=== PATIENT | female | born 1985 | race Caucasian/White ===

== ENCOUNTER 2021-08-31 11:43 | Outpatient (RCR) | payer BC, SELFPAY ==
--- OUTSIDE RECORDS SUMMARY | 2021-08-26 09:09 | XMS_ITS | Continuity of Care Document ---
:1985 Author Care Team Providers Name Role Phone MD Sara Vega Primary Care Physician MD Raphael Attending Physician Unavailable Allergies, Adverse Reactions, Alerts Allergen Type Severity Reaction Last Updated Verified Status Adhesive Allergy Unknown June 01, Yes Active 2021 Nickel Allergy Unknown redness May 31, Yes Active 2021 Latex Allergy Unknown rash, redness May 31, Yes Acti ve 2021 Social History Smoking Status Status Start Date End Date Date of Observat ion Ex-smoker (finding) January 9:51am Additional Data Assigned Sex Female Problems Active Problems Medical Problem Onset Date Status Diabetes mellitus screening July 11, 2013 Active Section Active Screening Active Breast cancer 2021 Active Medications Medication Status Dose Units Route Directions Qty Days Start End Ins tructions Date Date Acetaminophen Active 500-1 MG PO Every 6 100 NO MORE THAN (Tylenol 000 Hours as 4000 MG/ DAY Extra needed Strength) 500 Mg TAB Albuterol Active 2 PUFF INH Every 4 1 (Ventolin Hours as Hfa) 90 Mcg needed DOSE Chlorpheniram Active 1 TAB OR Every 6-8 ine-Phenyleph Hours rine (Coricidin D Cold/Flu/Sinu ) TAB Hyoscyamine Active 0.125 MG OR As Needed Sulfate (Hyoscyamine Sulfate Odt) 0.125 Mg TAB Ibuprofen Active 600 MG PO Every 6 30 Hours as needed Lorazepam Active 0.5 MG PO Twice A Day June 15, 2021 9:34am Melatonin Active 3 MG PO Bedtime as 100 needed Montelukast Active 10 MG PO Bedtime 30 Sodium (Singulair) 10 Mg TAB Naproxen Active 500 MG PO Twice A Day 20 Omeprazole Active 40 MG PO Daily June 08, 2021 11:57am Ondansetron Active 4 MG PO Every 4-6 01 August For uncontrolled chemo related nausea if prochlorperazine Hcl Hours as , (compazine) ineffective. Do not take within 36 hours of needed 2021 chemo. Cautio n for constipation. 3:57pm Prochlorperaz Active 10 MG PO Every 8-12 01 June PRN ine Maleate Hours as , Nause a/vomitin needed for 2021 g Nausea/Vomi 12:35pm ting Acetaminophen Disconti 1-2 TAB PO Every 6 May /Hydrocodone nued Hours as , , Bitart needed 2021 2021 (Hydrocodone- 11:36am 8:46am Acetaminophen ) 5 Mg/325 Mg TAB Albuterol Disconti 2 PUFF INH Q4-6H Prn 03 May (Proventil nued , Hfa) 90 Mcg 2021 INH 10:22a m Clomiphene Disconti 150 MG PO Daily Days July Citrate nued 3-7 r , 2015 2:05pm 9:31am Clomiphene Disconti 50 MG PO Daily Days December Citrate nued 3-7 , 2015 11:16am 10:22a m Clomiphene Disconti 100 MG PO Daily December take during cycle days 3-7 and return to clinic on day 21 Citrate nued , , for progeste tracie level check 2015 2021 11:40am 10:22a m Clomiphene Disconti 150 MG PO Daily Days March Citrate nued 3-7 , 2016 11:17am 10:22a m Clomiphene Disconti 150 MG PO Daily Days 15 Janua r Citrate nued 3-7 r 2015, 2:52pm 2016 11:17a m Clomiphene Disconti 50 MG PO Daily Days m Take on cycle Citrate nued 3-7 er , thong days 3-7 2015, 9:12am 2016 1:59pm Clomiphene Disconti 50 MG PO Daily Days Octoberem Take on cycle Citrate nued 3-7 , thong days 3-7 2015 03, 3:58pm 2016 9:12am Clomiphene Disconti 50 MG PO Daily Days August Take on cycle Citrate nued 3-7 , , days 3-7 2015 2015 3:06pm 3:58pm Clomiphene Disconti 50 MG PO Daily Dece Anand e one pill daily on days Citrate nued r , er 3-7 of cyc le. (Clomid) 50 2012, Mg TAB 2:15pm 2012 3:52pm Clomiphene Disconti 50 MG PO Daily December Anand e one pill daily on days Citrate nued , er 3-7 of cycle . (Clomid) 50 2012, Mg TAB 2:39pm 2012 2:15pm Clomiphene Disconti 50 MG PO Daily Anand e one pill daily on days Citrate nued er r 3-7 of cycle . (Clomid) 50 , , Mg TAB 2012 2012 3:51pm 2:39pm Dalera Disconti Twice A Day b Inhaler nued er 2017 1:48pm Diphtheria/Te Disconti 0.5 ML IM Once August tanus/Acell nued , , Pertussis 2013 2013 (Adacel) 0.5 4:24pm 4:27pm Ml INJ Docosahexaeno Disconti 200 MG PO Daily August ic Acid nued , , ( 2015 2021 Dha) 200 Mg 3:06pm 10:22a CAP m Docosahexaeno Disconti 200 MG OR Daily August ic Acid nued , , ( 2015 2021 Dha) 200 Mg 8:14am 10:22a CAP m Docusate Disconti 100 MG PO Bedtime September Sodium nued , , (Colace) 100 2013 2015 Mg CAP 8:25am 2:48pm Doxycycline Disconti 100 MG PO Twice A Day August (Monohydrate) nued , (Doxycycline) 2021 2021 100 Mg TAB 11:08am 8:18am Doxycycline Disconti 100 MG PO Twice A Day August (Monohydrate) nued , (Doxycycline) 2021 100 Mg TAB 11:08a m Doxycycline Disconti 100 MG PO Twice A Day June m start Hyclate nued , thong medication t he 2012, day prior to 3:53pm 2012 your procedur e 3:22pm Fluoxetine Disconti 40 MG PO Daily 30 Decemb Hcl nued er 2012 3:52pm Ibuprofen Disconti 600 MG PO Every 6 September nued Hours as , , needed for 2013 2015 Pain 8:25am 2:48pm Magic Disconti 5 ML PO Four Times June SWISH AND SPIT Mouthwash nued Daily as , JULY COM POUND IF FIRST PRODUCT NOT COVERED (Lidocaine/Be needed 2021 2021 nadryl/Maalox 12:20pm 8:18am ) (First-Mouthw yessi Blm) Blm SHERON Norethindrone Disconti 0.35 MG PO Daily October (Contraceptiv nued , , e) (Eladia) 2013 2015 0.35 Mg TAB 8:37am 2:48pm Olanzapine Disconti 5 MG PO Daily June Take 1 tab at bedtime, daily for 4 days of each chemo cycle nued , , starting eveni ng after chemotherapy. Do not take at the 2021 2021 same time as o ther sedating medications. 6:09pm 3:57pm Olanzapine Disconti 5 MG PO Daily June Take 1 tab at bedtime, daily for 4 days of each chemo cycle nued , , starting eveni ng after chemotherapy. Do not take at the 2021 2021 same time as o ther sedating medications. 4:19pm 6:09pm Olanzapine Disconti 5 MG PO Daily May Take 1 tab at bedtime, daily for 4 days starting evening nued , , after chemothe rapy. Do not take at the same time as other 2021 2021 sedating medic ations. 12:11pm 4:19pm Ondansetron Disconti 4 MG PO Every 4-6 June F or uncontrolled chemo related nausea if prochlorperazine Hcl nued Hours as , (compazine) ineffective. Do not take within 36 hours of needed 2021 2021 chemo. Cautio n for constipation. 12:20pm 3:57pm Ondansetron Disconti 4 MG PO Four Times 30 Decembe Doreen Hcl (Zofran) nued Daily as r , , 4 Mg TAB needed 2012 2013 11:15am 11:30a m Oxycodone Hcl Disconti 5-10 MG PO Every 4 September nued Hours as , , needed for 2013 2015 Pain 8:25am 2:48pm Phenylephrine Disconti 10 MG PO As Needed June Hcl (Oral) nued , (Sudafed Pe 2021 Congestion) 8:46am 10 Mg TAB Progesterone Disconti 100 MG VA Daily Januar (Vaginal) nued r , y (Endometrin) 2012, 100 Mg SUP 10:12am 2013 3:37pm Ranitidine Disconti 150 MG PO Twice A Day September Hcl (Zantac) nued , 150 Mg TAB 2014 8:25am Triamcinolone Disconti 1 TIA TOP Twice A Day July Acetonide nued , , (Triamcinolon 2013 2013 e Acetonide 8:29pm 8:25am (Cream)) 0.1 % CRE Immunizations Immunization Event Not Given Dose Oceanographer Physical Lot Number Vac cine Date Reason Number Informatio n Statement (VIS) Deta il Tdap August 03 SANOFI [id number] (adolescent/adul ) 2013 Medical Equipment Device Date Implanted Device Details PowerPort M.[employer].I. Implantable May 31, 2021 JAMARI: [id number] Port Issuing Agency: [id number] Device Id: [id number] Expiration Date: 05-08-29 Lot Number: [id number] Relevant Diagnostic Tests and/or Laboratory Data Laboratory Results Test Date/Time Result Interpretation Reference Result Comment Performing Range Site White Blood August 24, 4.49 5.00-10.00 [facility] Hospital Lab Count 2021 [facility] 7:55am [facility] [address] Red Blood Count August 24, 3.18 3.90-5.03 [facility] 2021 [facility] 7:55am [facility] [address] Hemoglobin August 24, 9.6 12.0-15.5 [facility] Lab 2021 [facility] 7:55am [facility] [address] Hematocrit August 24, 28.5 34.9-44.5 [facility] 2021 [address] [facility] 7:55am [place] [address] Mean August 24, 90 82-98 [facility] Corpuscular 2021 1999 [facility] Volume 7:55am [place] [address] Mean August 24, 30 27-34 [facility] Corpuscular 2021 [address] [facility] Hemoglobin 7:55am [facility] [place] [address] Mean August 24, 34 32-36 [facility] Corpuscular 2021 [address] [facility] Hemoglobin 7:55am [facility] [address] Concent Platelet Count August 24, 276 150-450 [facility] Lab 2021 [address] [facility] 7:55am [place] [address] RDW Coefficient August 24, 15.8 11.5-15.3 [facility] Lab of Variation 2021 1999 [facility] 7:55am [place] [address] Neutrophils (%) August 24, 72.0 50.0-70.0 [facility] Lab (Auto) 2021 [address] [facility] 7:55am [place] [address] Lymphocytes (%) August 24, 16.3 25.0-45.0 [facility] (Auto) 2021 [address] [facility] 7:55am [place] [address] Monocytes (%) August 24, 7.3 0.00-11.0 [facility] (Auto) 2021 [address] [facility] 7:55am [place] [address] Eosinophils (%) August 24, 4.0 0.0-7.0 [facility] (Auto) 2021 [address] [facility] 7:55am [place] [address] Basophils (%) August 24, 0.2 0.0-3.0 [facility] (Auto) 2021 [address] [facility] 7:55am [place] [address] Immature August 24, 0.2 [facility] Granulocyte % 2021 1999 [facility] (Auto) 7:55am [place] [address] Neutrophils # August 24, 3.23 1.70-7.00 [facility] (Auto) 2021 [address] [facility] 7:55am [place] [address] Lymphocytes # August 24, 0.73 0.90-2.90 [facility] (Auto) 2021 [address] [facility] 7:55am [facility] [address] Monocytes # August 24, 0.33 0.30-0.90 [facility] Lab (Auto) 2021 [address] [facility] 7:55am [facility] [address] Eosinophils # August 24, 0.18 0.00-0.50 [facility] (Auto) 2021 [address] [facility] 7:55am [facility] [address] Basophils # August 24, 0.01 0.00-0.20 [facility] (Auto) 2021 [address] [facility] 7:55am [facility] [address] Immature August 24, 0.01 [facility] Granulocyte # 2021 1999 [facility] (Auto) 7:55am [facility] [address] Random Glucose August 24, 106 60-115 [facility] 2021 [address] [facility] 7:55am [facility] [address] Blood Urea August 24, 16 5-24 [facility] Nitrogen 2021 [address] [facility] 7:55am [facility] [address] Creatinine August 24, 0.6 0.5-1.5 [facility] 2021 [address] [facility] 7:55am [facility] [address] Estimated August 24, 143.946 [facility] Creatinine 2021 65 1999 [facility] Clearance 7:55am [facility] [address] Sodium Level August 24, 138 135-149 [facility] Lab 2021 [address] [facility] 7:55am [facility] [address] Potassium Level August 24, 3.9 3.6-5.1 [facility] Lab 2021 [address] [facility] 7:55am [facility] [address] Chloride Level August 24, 104 96-114 [facility] Lab 2021 [address] [facility] 7:55am [facility] [address] Carbon Dioxide August 24, 25 20-32 [facility] Level 2021 [address] [facility] 7:55am [facility] [address] Uric Acid June 09, 4.2 2.2-8.4 [facility] 2021 [address] [facility] 10:00am [facility] [address] Calcium Level August 24, 8.7 8.4-10.6 [facility] 2021 [address] [facility] 7:55am [facility] [address] Total Protein August 24, 6.0 6.0-8.[address] [facility] Lab 2021 Eltrombopag, a [address] [facility] 7:55am bone marrow [place] [address] stimulant used to treat thrombocytopenia and aplastic anemia, interferes with this measurement of total protein. A 5% bias has been observed. Albumin August 24, 3.7 3.3-5.0 [facility] 2021 [address] [facility] 7:55am [place] [address] Total Bilirubin August 24, 0.3 0.1-1.5 [facility] 2021 [address] [facility] 7:55am [place] [address] Aspartate Amino August 24, 36 12-35 [facility] Transf 2021 [facility] (AST/SGOT) 7:55am [facility] [address] Alanine August 24, 36 4-35 [facility] Aminotransferas 2021 [facility] e (ALT/SGPT) 7:55am [place] [address] Alkaline August 24, 59 40-150 [facility] Phosphatase 2021 [address] [facility] 7:55am [place] [address] Advance Directives Advance Directive Response Recorded Date/Time Does Pt have Health Care No October 23, 14 7:56am Directive? Has patient completed a No January 15, 018 9:51am Health Care Directive? Insurance Providers Guarantor China Burgos Address [address] [place] [address] Contact Info. Home Phone: Payer Policy Id Coverage Id Subscriber's Subscriber Id Effective E xpiration Name Date Date [place] [id number] China Burgos [facility] [id number] Encounters Encounter Location(s) Arrival/Admit Date Discharge/Depart Date Provider(s) Registered [place] August 24, 2021 Raphael, [facility] 6:57am Plan of Treatment Future Tests Future scheduled test information is unavailable Pending Tests Pending diagnostic test information is unavailable Future Visits Future appointment information is unavailable Referrals to Other Providers Reason for Referral Start Provider Provider Contact Provider Address Referral Date Information Taylor Harrison Work Phone: [facility] [address] [facility] [address] Future Procedures Future procedure information is unavailable Future Medications Future medication information is unavailable Patient Instructions Fever in Adults (ED)
--- NOTE | 2021-08-29 16:27 | URNOTE ---
07/14/21 Note entered by Catina Bernal: Received request for prior auth for Paclitaxel ([id number]). Per Availity, prior auth is not required. Ref # [id number]
--- NOTE | 2021-08-29 16:28 | URNOTE ---
05/25/21 note entered by Shazia Soto: Request received from [facility] for prior authorization of Doxorubicin [id number], Cytoxan J9070, Emend J1453, Aloxi J2469 and Neulasta J2506. Patient carries [facility] [place] as primary insurance. Per BC/Availity no prior authorization is required for Doxorubicin, Cytoxan, Emend, Aloxi and Neulasta. Services are based on medical necessity. Authorization #[id number]
[2021-08-31 11:51] LABS: Slide Review Reflex No
[2021-08-31 12:00] VITALS: BP 132/83; PULSE 75; TEMP 36.4; O2SAT 96
[2021-08-31 12:35] LABS: Basophils Percent Auto 0.2 % (0.0-3.0); Eosinophils Percent Auto 1.6 % (0.0-7.0); Hematocrit 29.4 % (33.0-51.0); Hemoglobin* 9.8 gm/dL (12.0-16.0); Immature Granulocytes Abs Auto 0.02 K/uL (0.00-0.30); Lymphocytes Percent Auto 16.4 % (20-44); Mean Corpuscular HGB Conc 33 gm/dL (32-36); Mean Corpuscular Hemoglobin 30 pg (26-34); Mean Corpuscular Volume 91 fL (80-100); Monocytes Percent Auto 6.5 % (0.0-11.0); Neutrophils Percent Auto 74.8 % (42.0-72.0); Platelet Count* 320 K/uL (140-440); RDW Coefficient of Variation % 15.1 % (11.5-15.5); Red Blood Count 3.25 m/uL (4.00-5.20); White Blood Count* 4.32 K/uL (4.50-11.00)
[2021-08-31] MEDS: PALONOSETRON 0.25 MG/5 ML inj IVP (13:13)
[2021-08-31] MEDS: dexAMETHasone 20 MG in 0.9 % SODIUM CHLORIDE 100 ml 100 ML 408 MG IVPB (13:14)
[2021-08-31] MEDS: FAMOTIDINE 20 MG, diphenhydrAMINE 25 MG in 0.9 % SODIUM CHLORIDE 100 ml 100 ML 309 MG IVPB (13:39)
== END 2021-09-01 23:59 | disposition home or self-care (01) ==
LOC: CCIC 11:43
PROVIDERS: Clinical Nurse Specialist; PCP Family Medicine; Visit Provider Internal Medicine Hematology & Oncology
DX: C50.912 Malignant neoplasm of unspecified site of left female breast (principal); Z51.11 Encounter for antineoplastic chemotherapy; Z17.0 Estrogen receptor positive status [ER+]
CPT/HCPCS: 36415; 36591; 85025; 96376; 96413; J1100; J1200; J2469; J9267; S0028

== ENCOUNTER 2021-09-28 09:30 | Outpatient (RCR) | payer BC, SELFPAY ==
[2021-09-07 09:36] LABS: Basophils Percent Auto 0.5 % (0.0-3.0); Eosinophils Percent Auto 0.8 % (0.0-7.0); Hematocrit 29.2 % (33.0-51.0); Hemoglobin* 9.8 gm/dL (12.0-16.0); Immature Granulocytes Abs Auto 0.03 K/uL (0.00-0.30); Lymphocytes Percent Auto 4.3 % (20-44); Mean Corpuscular HGB Conc 34 gm/dL (32-36); Mean Corpuscular Hemoglobin 30 pg (26-34); Mean Corpuscular Volume 90 fL (80-100); Monocytes Percent Auto 6.5 % (0.0-11.0); Neutrophils Percent Auto 87.1 % (42.0-72.0); Platelet Count* 251 K/uL (140-440); Red Blood Count 3.24 m/uL (4.00-5.20); White Blood Count* 3.98 K/uL (4.50-11.00)
[2021-09-07 09:45] LABS: Slide Review Reflex No
[2021-09-07 09:50] VITALS: BP 134/86; PULSE 88; RESP 16; TEMP 36.2; O2SAT 97
[2021-09-07] MEDS: PALONOSETRON 0.25 MG/5 ML inj IVP (10:06)
[2021-09-07] MEDS: dexAMETHasone 20 MG in 0.9 % SODIUM CHLORIDE 100 ml 100 ML 408 MG IVPB (10:16)
[2021-09-07] MEDS: 0.9 % SODIUM CHLORIDE 250 ml IV (10:20)
[2021-09-07] MEDS: FAMOTIDINE 20 MG, diphenhydrAMINE 25 MG in 0.9 % SODIUM CHLORIDE 100 ml 100 ML 309 MG IVPB (10:41)
[2021-09-07] MEDS: HEPARIN 500 UNIT/5 ML SYRINGE IVF (12:43)
[2021-09-07] MEDS: SODIUM CHLORIDE 0.9 % (FLUSH) 10 ML SYRINGE IVF (12:43)
--- NOTE | 2021-09-07 16:27 | ONC.NURNOTE ---
Pt treated with Taxol today. Pt called this afternoon to inform [facility] staff that she found out she was exposed to COVID on September 04. Pt took an at home covid test and the result was positive. Pt states the only symptom she has is a little congestion this am which she thought was allergies. Director Product Development discussed with Ly Pisano APRN and recommendations given to pt to contact her primary care provider to get a PCR covid test so that it can be determine if she is a candidate for any treatment for COVID. Pt instructed she can return to [facility] for treatment 10 days after her positive test. Pt scheduled for her next chemo on 09/19/21 for labs and appt with Ly Pisano APRN to determine safe to proceed with Taxol. Pt will keep [facility] staff updated. Appt with Raphael cancelled for next week. Pt verbalized understanding of plan of care.
--- NOTE | 2021-09-08 14:33 | ONC.NURNOTE ---
Patient called office stating that with her positive COVID result, she was prescribed Paxlovid by primary but they wanted this okayed by oncologist in regards to chemotherapy. Specialty Sales Representative looked at clinical pharmacology and found that that potential to increase concentration of dexamethasone and taxol. Contacted Dr. Lim and she notes: That's a good thought. I have not done this drug before. So I have zero recommendations. But I don't see any reason why we can't try it. Patient notified of this by breast health care liaison.
--- NOTE | 2021-09-16 17:35 | ONC.NURNOTE ---
Authorization: User: Catina Bernal Date: 07/14/21 11:26 Type: Eligibility Determination Note... Received request for prior auth for Paclitaxel ([id number]). [facility]. Ref # [id number] User: Shazia L Charles Date: 05/25/21 13:30 Type: Eligibility Determination Note... Request received from [facility] for prior authorization of Doxorubicin J9000, Cytoxan J9070, Emend J1453, Aloxi J2469 and Neulasta J2506. Patient carries [facility] as primary insurance. Per /Availity no prior authorization is required for Doxorubicin, Cytoxan, Emend, Aloxi and Neulasta. Services are based on medical necessity. Authorization #[id number]
[2021-09-19 08:28] VITALS: BP 164/100; PULSE 81; RESP 16; TEMP 36.6; O2SAT 97
[2021-09-19 08:45] LABS: Basophils Percent Auto 0.3 % (0.0-3.0); Eosinophils Percent Auto 1.1 % (0.0-7.0); Hematocrit 31.3 % (33.0-51.0); Hemoglobin* 10.5 gm/dL (12.0-16.0); Immature Granulocytes Abs Auto 0.01 K/uL (0.00-0.30); Lymphocytes Percent Auto 17.2 % (20-44); Mean Corpuscular HGB Conc 34 gm/dL (32-36); Mean Corpuscular Hemoglobin 30 pg (26-34); Mean Corpuscular Volume 88 fL (80-100); Monocytes Percent Auto 10.5 % (0.0-11.0); Neutrophils Percent Auto 70.6 % (42.0-72.0); Platelet Count* 270 K/uL (140-440); RDW Coefficient of Variation % 12.8 % (11.5-15.5); Red Blood Count 3.54 m/uL (4.00-5.20); White Blood Count* 3.73 K/uL (4.50-11.00)
[2021-09-19 08:50] LABS: Slide Review Reflex No
[2021-09-19 08:51] VITALS: BP 137/80
[2021-09-19 08:53] LABS: Albumin* 3.7 g/dL (3.3-5.0)
[2021-09-19 08:54] LABS: Chloride* 108 mmol/L (96-114); Sodium* 138 mmol/L (135-149)
[2021-09-19 08:56] LABS: Aspartate Amino Transferase* 23 U/L (12-35); Bilirubin Total* 0.4 mg/dL (0.1-1.5); Carbon Dioxide* 26 mmol/L (20-32); Creatinine* 0.5 mg/dL (0.5-1.5); Est. Creatinine Clearance* 169.82; Estimated Glomerular Filt Rate 125 ml/min
[2021-09-19 08:57] LABS: Alanine Aminotransferase* 21 U/L (4-35); Alkaline Phosphatase* 67 U/L (40-150); Blood Urea Nitrogen* 16 mg/dL (5-24); Calcium* 8.4 mg/dL (8.4-10.6); Glucose* 113 mg/dL (60-115); Total Protein* 5.9 g/dL (6.0-8.3)
[2021-09-19] MEDS: SODIUM CHLORIDE 0.9 % (FLUSH) 10 ML SYRINGE IVF ×2 (10:19→14:07)
[2021-09-19] MEDS: 0.9 % SODIUM CHLORIDE 250 ml IV (10:19)
[2021-09-19] MEDS: PALONOSETRON 0.25 MG/5 ML inj IVP (10:20)
[2021-09-19] MEDS: dexAMETHasone 20 MG in 0.9 % SODIUM CHLORIDE 100 ml 100 ML 408 MG IVPB (10:20)
[2021-09-19] MEDS: FAMOTIDINE 20 MG, diphenhydrAMINE 25 MG in 0.9 % SODIUM CHLORIDE 100 ml 100 ML 307.5 MG IVPB (10:45)
[2021-09-19] MEDS: HEPARIN 500 UNIT/5 ML SYRINGE IVF (14:07)
[2021-09-28 09:50] VITALS: BP 130/90; PULSE 73; RESP 16; TEMP 36.4; O2SAT 97
[2021-09-28 09:51] LABS: Basophils Absolute Auto 0.02 K/uL (0.00-0.30); Basophils Percent Auto 0.4 % (0.0-3.0); Eosinophils Absolute Auto 0.08 K/uL (0.00-0.50); Eosinophils Percent Auto 1.5 % (0.0-7.0); Hematocrit 31.4 % (33.0-51.0); Hemoglobin* 10.6 gm/dL (12.0-16.0); Immature Granulocytes Abs Auto 0.02 K/uL (0.00-0.30); Mean Corpuscular HGB Conc 34 gm/dL (32-36); Mean Corpuscular Hemoglobin 30 pg (26-34); Mean Corpuscular Volume 88 fL (80-100); Monocytes Percent Auto 8.3 % (0.0-11.0); Neutrophils Percent Auto 73.4 % (42.0-72.0); Platelet Count* 300 K/uL (140-440); RDW Coefficient of Variation % 12.3 % (11.5-15.5); Red Blood Count 3.59 m/uL (4.00-5.20)
[2021-09-28 09:54] LABS: Slide Review Reflex No
[2021-09-28] MEDS: dexAMETHasone 20 MG in 0.9 % SODIUM CHLORIDE 100 ml 100 ML 408 MG IVPB (10:30)
[2021-09-28] MEDS: PALONOSETRON 0.25 MG/5 ML inj IVP (10:30)
[2021-09-28] MEDS: FAMOTIDINE 20 MG, diphenhydrAMINE 25 MG in 0.9 % SODIUM CHLORIDE 100 ml 100 ML 309 MG IVPB (10:56)
== END 2021-10-02 23:59 | disposition home or self-care (01) ==
LOC: CCIC 09:30
PROVIDERS: Clinical Nurse Specialist; PCP Family Medicine; Visit Provider Internal Medicine Hematology & Oncology
DX: C50.912 Malignant neoplasm of unspecified site of left female breast (principal)
CPT/HCPCS: 36415; 36591; 80053; 85025; 96376; 96413; 99212; 99214; J1100; J1200; J1642; J2469; J7050; J9267; S0028

== ENCOUNTER 2021-11-09 09:09 | Outpatient (CLI) | payer BC, SELFPAY ==
--- NOTE | 2021-11-09 09:15 | CRLHL7_ITS ---
For Patients: As a result of the 21st Century Cures Act, medical imaging exams and procedure reports are released immediately into your electronic medical record. You may view this report before your referring provider. If you have questions, please contact your health care provider. BILATERAL BREAST MRI WITHOUT AND WITH GADOLINIUM, 11/09/2021 CLINICAL HISTORY: 35-year-old with LEFT breast cancer, biopsy-proven christine metastasis, currently undergoing neoadjuvant therapy. INDICATION FOR BREAST MRI: Evaluate response to neoadjuvant therapy. COMPARISON STUDIES: MRI 05/08/2021 and 07/20/2021, mammogram and ultrasound 05/03/2021. CONTRAST: 15 cc of Gadavist. TECHNIQUE: The patient was positioned prone using a breast coil. Multiple imaging sequences were obtained using 1-1.5 mm thick slices with no gap. The image sequences include T2-weighted STIR in the axial plane, T1-weighted nonfat-saturated gradient echo in the axial plane, pre- and post-contrast T1-weighted FLASH 3D with fat suppression in the axial plane, and T1-weighted FLASH high resolution 3D with fat suppression in the sagittal plane. Image post-processing was performed on a KeyMe workstation. Complex 3D rendering including maximum intensity projections (MIPS) and volumetric renderings were obtained to optimize visualization of the extent of pathology and relationship to the nipple, skin, and chest wall. This aids in determining feasibility of breast conservation surgery. Subtraction, multiplanar reconstruction, mean curve determination, and angiogenesis mapping were also performed. The study was technically adequate. FINDINGS: Amount of Fibroglandular Tissue: Scattered fibroglandular tissue. Breast Background Enhancement: Mild. RIGHT Breast: No suspicious areas of enhancement. LEFT Breast: No suspicious areas of enhancement. Resolution of the previously-seen mass. No residual enhancement. The biopsy marker clip is seen at the site of biopsy-proven malignancy at 3 o`clock, middle depth. Persistent mild skin thickening with edema. No enhancement within the skin. Lymph Nodes: The lymph nodes appear morphologically normal. IMPRESSIONS AND RECOMMENDATIONS: LEFT breast: 1. Biopsy marker clip at the site of biopsy-proven malignancy in the LEFT breast with resolution of the mass, consistent with treatment response. Surgical/oncologic follow-up for continued management. 2. Lymph nodes appear morphologically normal, consistent with treatment response. RIGHT breast: Negative, there is no MRI evidence of contralateral malignancy. BI-RADS Category 6: Known Biopsy-Proven Malignancy Dictated by Rosa Leavitt MD @ 11/10/2021 9:01:46 AM JR/Dictated by: Rosa Leavitt MD @ 11/10/2021 9:03:00 AM (Electronically Signed)
== END 2021-11-09 09:10 | disposition home or self-care (01) ==
PROVIDERS: PCP Family Medicine; Visit Provider Internal Medicine Hematology & Oncology
DX: C50.912 Malignant neoplasm of unspecified site of left female breast (principal); C77.9 Secondary and unspecified malignant neoplasm of lymph node, unspecified
CPT/HCPCS: 77049; A9575

== ENCOUNTER 2022-03-02 13:27 | Outpatient (CLI) | payer BC, SELFPAY ==
--- NOTE | 2022-03-02 13:30 | CRLHL7_ITS ---
For Patients: As a result of the Century Cures Act, medical imaging exams and procedure reports are released immediately into your electronic medical record. You may view this report before your referring provider. If you have questions, please contact your health care provider. DXA BONE MINERAL DENSITY STUDY Current height (in): 70.0. Weight (lb): 336.0. Menopause age: 35. Ethnicity: White. 1. Have you had a previous hip or vertebral fracture? No. 2. Have you had any fractures during your adult life which did not result from significant trauma (e.g., auto accident)? No. 3. Did either of your parents have a hip fracture? No. 4. Do you smoke? No. 5. Have you ever taken Glucocorticoids? No. 6. Do you have rheumatoid arthritis? No. 7. Do you have secondary osteoporosis? No. 8. Do you drink 3 or more alcoholic drinks per day? No. 9. Are you being treated for osteoporosis? No. 10. Have you ever taken any of the following medications: Actonel, Evista, Fosamax, Miacalcin, Reclast, Boniva, Forteo, HRT (i.e. estrogen/hormone therapy), Protelos, Prolia, Vitamin D, Calcium, other ??? please specify. ANSWER: No. 11. Do you have any of the following medical conditions: Anorexia or bulimia, asthma or emphysema, end stage renal disease, hyperparathyroidism, any seizure disorders, cancer, inflammatory bowel diseases, hysterectomy, other ??? please specify. ANSWER: Yes, asthma or emphysema, cancer. 12. What was your maximum height (inches)? 70. 13. Do you perform weight bearing exercise regularly? Yes. 14. Do you regularly consume dairy products? Yes. 15. Do you drink caffeinated beverages? Yes. 16. At what age did your period start? 13. 17. Are you premenopausal? Yes. 18. How many full term pregnancies have you had? . 19. Have you ever missed your period for more than 6 months in a row (not including or menopause)? No. TECHNIQUE: Bone mineral density study was performed using the [employer]. FINDINGS: The results of the study expressed as bone mineral density (BMD) are as follows: Lumbar spine L1 to L4: BMD: 0.970 g/cm2. T-score: -0.7. Z-score: -0.6. Neck Left: BMD: 0.795 g/cm2. T-score: -0.5. Z-score: -0.3. Right: BMD: 0.881 g/cm2. T-score: 0.3. Z-score: 0.5. Total Left: BMD: 1.063 g/cm2. T-score: 1.0. Z-score: 1.1. Right: BMD: 1.065 g/cm2. T-score: 1.0. Z-score: 1.1. IMPRESSION: Normal bone density. Tyler Mendez M.D. Diagnostic Radiologist [email or web address] ANGELICA/bean / be/Dictated by: Tyler Mendez MD @ 03/02/2022 2:18:00 PM (Electronically Signed)
== END 2022-03-02 13:28 | disposition home or self-care (01) ==
PROVIDERS: PCP Family Medicine; Visit Provider Internal Medicine Hematology & Oncology
DX: N95.9 Unspecified menopausal and perimenopausal disorder (principal)
CPT/HCPCS: 77080

== ENCOUNTER 2022-03-23 10:00 | Outpatient (RCR) | payer BC, SELFPAY ==
[2021-10-05 08:15] VITALS: BP 150/90; PULSE 78; RESP 14; TEMP 36.1; O2SAT 97
[2021-10-05 08:37] LABS: Basophils Absolute Auto 0.02 K/uL (0.00-0.30); Basophils Percent Auto 0.4 % (0.0-3.0); Eosinophils Absolute Auto 0.12 K/uL (0.00-0.50); Eosinophils Percent Auto 2.6 % (0.0-7.0); Hematocrit 31.7 % (33.0-51.0); Hemoglobin* 10.6 gm/dL (12.0-16.0); Immature Granulocytes Abs Auto 0.02 K/uL (0.00-0.30); Lymphocytes Percent Auto 19.9 % (20-44); Mean Corpuscular HGB Conc 33 gm/dL (32-36); Mean Corpuscular Hemoglobin 29 pg (26-34); Mean Corpuscular Volume 87 fL (80-100); Monocytes Percent Auto 8.1 % (0.0-11.0); Neutrophils Absolute Auto 3.14 K/uL (1.7-7.0); Neutrophils Percent Auto 68.6 % (42.0-72.0); Platelet Count* 273 K/uL (140-440); Red Blood Count 3.65 m/uL (4.00-5.20); White Blood Count* 4.58 K/uL (4.50-11.00)
[2021-10-05 08:40] LABS: Slide Review Reflex No
[2021-10-05] MEDS: dexAMETHasone 20 MG in 0.9 % SODIUM CHLORIDE 100 ml 100 ML 408 MG IVPB (09:18)
[2021-10-05] MEDS: PALONOSETRON 0.25 MG/5 ML inj IVP (09:19)
[2021-10-05] MEDS: 0.9 % SODIUM CHLORIDE 250 ml IV (09:29)
[2021-10-05] MEDS: HEPARIN 500 UNIT/5 ML SYRINGE IVF (09:29)
[2021-10-05] MEDS: SODIUM CHLORIDE 0.9 % (FLUSH) 10 ML SYRINGE IVF (09:29)
[2021-10-05] MEDS: FAMOTIDINE 20 MG, diphenhydrAMINE 25 MG in 0.9 % SODIUM CHLORIDE 100 ml 100 ML 309 MG IVPB (09:46)
[2021-10-12 08:08] LABS: Basophils Percent Auto 0.7 % (0.0-3.0); Eosinophils Percent Auto 2.9 % (0.0-7.0); Hematocrit 32.1 % (33.0-51.0); Hemoglobin* 10.7 gm/dL (12.0-16.0); Immature Granulocytes Abs Auto 0.02 K/uL (0.00-0.30); Lymphocytes Percent Auto 20.5 % (20-44); Mean Corpuscular HGB Conc 33 gm/dL (32-36); Mean Corpuscular Hemoglobin 29 pg (26-34); Mean Corpuscular Volume 87 fL (80-100); Monocytes Percent Auto 7.9 % (0.0-11.0); Neutrophils Percent Auto 67.5 % (42.0-72.0); Platelet Count* 288 K/uL (140-440); RDW Coefficient of Variation % 12.3 % (11.5-15.5); Red Blood Count 3.68 m/uL (4.00-5.20); White Blood Count* 4.44 K/uL (4.50-11.00)
[2021-10-12 08:10] LABS: Slide Review Reflex No
[2021-10-12 08:24] LABS: Albumin* 3.7 g/dL (3.3-5.0); Chloride* 106 mmol/L (96-114)
[2021-10-12 08:25] LABS: Potassium* 3.7 mmol/L (3.6-5.1); Sodium* 140 mmol/L (135-149)
[2021-10-12 08:27] LABS: Alanine Aminotransferase* 28 U/L (4-35); Alkaline Phosphatase* 70 U/L (40-150); Aspartate Amino Transferase* 25 U/L (12-35); Bilirubin Total* 0.1 mg/dL (0.1-1.5); Blood Urea Nitrogen* 18 mg/dL (5-24); Carbon Dioxide* 26 mmol/L (20-32); Creatinine* 0.6 mg/dL (0.5-1.5); Estimated Glomerular Filt Rate 120 ml/min; Glucose* 103 mg/dL (60-115); Total Protein* 6.3 g/dL (6.0-8.3)
[2021-10-12 08:28] LABS: Calcium* 8.6 mg/dL (8.4-10.6)
[2021-10-12] MEDS: dexAMETHasone 20 MG in 0.9 % SODIUM CHLORIDE 100 ml 100 ML 408 MG IVPB (09:25)
[2021-10-12] MEDS: PALONOSETRON 0.25 MG/5 ML inj IVP (09:26)
[2021-10-12] MEDS: FAMOTIDINE 20 MG, diphenhydrAMINE 25 MG in 0.9 % SODIUM CHLORIDE 100 ml 100 ML 309 MG IVPB (09:47)
[2021-10-12] MEDS: SODIUM CHLORIDE 0.9 % (FLUSH) 10 ML SYRINGE IVF (11:37)
[2021-10-12] MEDS: HEPARIN 500 UNIT/5 ML SYRINGE IVF (11:37)
[2021-10-19 09:11] VITALS: BP 128/83; PULSE 89; RESP 16; TEMP 36.4; O2SAT 97
[2021-10-19 09:27] LABS: Basophils Absolute Auto 0.01 K/uL (0.00-0.30); Basophils Percent Auto 0.2 % (0.0-3.0); Eosinophils Percent Auto 2.2 % (0.0-7.0); Hematocrit 33.2 % (33.0-51.0); Hemoglobin* 11.2 gm/dL (12.0-16.0); Immature Granulocytes Abs Auto 0.03 K/uL (0.00-0.30); Lymphocytes Percent Auto 16.1 % (20-44); Mean Corpuscular HGB Conc 34 gm/dL (32-36); Mean Corpuscular Hemoglobin 29 pg (26-34); Mean Corpuscular Volume 86 fL (80-100); Monocytes Percent Auto 7.1 % (0.0-11.0); Neutrophils Percent Auto 73.8 % (42.0-72.0); Platelet Count* 305 K/uL (140-440); RDW Coefficient of Variation % 12.4 % (11.5-15.5); Red Blood Count 3.87 m/uL (4.00-5.20); White Blood Count* 4.65 K/uL (4.50-11.00)
[2021-10-19 09:29] LABS: Slide Review Reflex No
[2021-10-19 09:45] LABS: Chloride* 104 mmol/L (96-114)
[2021-10-19 09:46] LABS: Potassium* 4.1 mmol/L (3.6-5.1); Sodium* 137 mmol/L (135-149)
[2021-10-19 09:48] LABS: Bilirubin Total* 0.2 mg/dL (0.1-1.5); Carbon Dioxide* 27 mmol/L (20-32); Creatinine* 0.6 mg/dL (0.5-1.5); Estimated Glomerular Filt Rate 120 ml/min; Total Protein* 6.9 g/dL (6.0-8.3)
[2021-10-19 09:49] LABS: Alanine Aminotransferase* 54 U/L (4-35); Alkaline Phosphatase* 73 U/L (40-150); Aspartate Amino Transferase* 39 U/L (12-35); Blood Urea Nitrogen* 22 mg/dL (5-24); Calcium* 8.7 mg/dL (8.4-10.6); Glucose* 100 mg/dL (60-115)
[2021-10-19] MEDS: PALONOSETRON 0.25 MG/5 ML inj IVP (10:15)
[2021-10-19] MEDS: FAMOTIDINE 20 MG, diphenhydrAMINE 25 MG in 0.9 % SODIUM CHLORIDE 100 ml 100 ML 307.5 MG IVPB (10:15)
[2021-10-19] MEDS: SODIUM CHLORIDE 0.9 % (FLUSH) 10 ML SYRINGE IVF ×2 (10:15→12:18)
[2021-10-19] MEDS: 0.9 % SODIUM CHLORIDE 250 ml IV (10:15)
[2021-10-19] MEDS: dexAMETHasone 20 MG in 0.9 % SODIUM CHLORIDE 100 ml 100 ML 408 MG IVPB (10:38)
[2021-10-19] MEDS: HEPARIN 500 UNIT/5 ML SYRINGE IVF (12:18)
[2021-10-26 08:27] LABS: Basophils Absolute Auto 0.03 K/uL (0.00-0.30); Basophils Percent Auto 0.6 % (0.0-3.0); Eosinophils Absolute Auto 0.07 K/uL (0.00-0.50); Eosinophils Percent Auto 1.3 % (0.0-7.0); Hematocrit 33.2 % (33.0-51.0); Hemoglobin* 11.3 gm/dL (12.0-16.0); Immature Granulocytes Abs Auto 0.04 K/uL (0.00-0.30); Lymphocytes Percent Auto 16.9 % (20-44); Mean Corpuscular HGB Conc 34 gm/dL (32-36); Mean Corpuscular Hemoglobin 29 pg (26-34); Mean Corpuscular Volume 85 fL (80-100); Monocytes Percent Auto 9.2 % (0.0-11.0); Neutrophils Absolute Auto 3.72 K/uL (1.7-7.0); Neutrophils Percent Auto 71.2 % (42.0-72.0); Platelet Count* 304 K/uL (140-440); RDW Coefficient of Variation % 12.6 % (11.5-15.5); Red Blood Count 3.93 m/uL (4.00-5.20); White Blood Count* 5.22 K/uL (4.50-11.00)
[2021-10-26 08:31] LABS: Slide Review Reflex No
[2021-10-26 08:40] LABS: Albumin* 3.9 g/dL (3.3-5.0); Chloride* 101 mmol/L (96-114); Potassium* 3.9 mmol/L (3.6-5.1); Sodium* 137 mmol/L (135-149)
[2021-10-26 08:42] LABS: Creatinine* 0.6 mg/dL (0.5-1.5); Estimated Glomerular Filt Rate 120 ml/min
[2021-10-26 08:43] LABS: Alanine Aminotransferase* 34 U/L (4-35); Alkaline Phosphatase* 76 U/L (40-150); Aspartate Amino Transferase* 28 U/L (12-35); Bilirubin Total* 0.2 mg/dL (0.1-1.5); Blood Urea Nitrogen* 21 mg/dL (5-24); Carbon Dioxide* 29 mmol/L (20-32); Glucose* 110 mg/dL (60-115); Total Protein* 6.7 g/dL (6.0-8.3)
[2021-10-26] MEDS: 0.9 % SODIUM CHLORIDE 250 ml IV (09:16)
[2021-10-26] MEDS: PALONOSETRON 0.25 MG/5 ML inj IVP (09:16)
[2021-10-26] MEDS: SODIUM CHLORIDE 0.9 % (FLUSH) 10 ML SYRINGE IVF (09:16)
[2021-10-26] MEDS: dexAMETHasone 20 MG in 0.9 % SODIUM CHLORIDE 100 ml 100 ML 400 MG IVPB (09:20)
[2021-10-26] MEDS: FAMOTIDINE 20 MG, diphenhydrAMINE 25 MG in 0.9 % SODIUM CHLORIDE 100 ml 100 ML 309 MG IVPB (09:42)
--- NOTE | 2021-11-30 13:37 | ONC.NURNOTE ---
Pt's mother called stating pt is now recovering from a Bilateral mastectomy, ovarian tube removal, and port removal by Dr. Thibodeaux. Pt doing well.
--- NOTE | 2022-02-21 14:23 | ONC.NURNOTE ---
I met with China and her mom after her oncology visit. Discussed plan of care including starting Anastrozole/Lynparza around 03/11/22, obtaining dental clearance for Zometa infusion (form given to [place]) and obtaining a baseline DEXA scan. Informed China that the Lynparaza Rx will need to be filled at a specialty pharmacy. Rx faxed to [facility] and we will await co-pay information. Printed information given to China re: Anastrzole, Lynparza and Zometa. Follow up appointment made with Ashlee Estrella for 03/23 and patient informed we will need to get labs done every 2 weeks for the first few months of Lynparaza. Patient verbazlies understanding of plan.
--- NOTE | 2022-02-23 16:01 | ONC.NURNOTE ---
Received call from [facility] clarifying if ok to switch the strength of Lynparza from 3 (100 mg) to 2 (150 mg) tabs. Reviewed dosing of 300mg BID per Dr. Lmi's note; [facility] to dispense 150mg tabs #120 for 2 tabs BID.
--- NOTE | 2022-02-24 12:23 | ONC.NURNOTE ---
Spoke with [facility] specialty pharmacy, . They were able to get Lynparza approved for patient with a very minimal, possibly $0 co-pay. They will contact [place] next week to arrange shipment. China will call [facility] to let us know when the shipment arrives with plan to start the Anastrozole and Lynparza on March 13.
--- NOTE | 2022-03-10 11:56 | ONC.NURNOTE ---
Spoke with [facility] ([phone], option [phone]), pharmacists Amanda and Sarah throughout the week. Extensive discussion regarding NCCN guidelines, Cindi trial and pt's staging with Dr. Mcgovern, Ly Mccarty APRN and [facility], and considerations for Verzenio vs Olaparib, regarding Dr. Lim's recent visit note. [facility] comfortable to proceed with dispensing Olaparib; to be delivered 03/11 or 03/13 for start date of 03/13. Reviewed plan with pt to f/u with Ly Mccarty APRN 03/23 to review side effects/tolerance of Olaparib. Pt agreeable to this plan and will notify us if any concerns.
[2022-03-10 13:34] LABS: Basophils Absolute Auto 0.01 K/uL (0.00-0.30); Basophils Percent Auto 0.2 % (0.0-3.0); Hematocrit 38.7 % (33.0-51.0); Hemoglobin* 12.9 gm/dL (12.0-16.0); Lymphocytes Percent Auto 11.3 % (20-44); Mean Corpuscular HGB Conc 33 gm/dL (32-36); Mean Corpuscular Hemoglobin 27 pg (26-34); Mean Corpuscular Volume 81 fL (80-100); Monocytes Percent Auto 6.1 % (0.0-11.0); Neutrophils Percent Auto 78.4 % (42.0-72.0); Platelet Count* 283 K/uL (140-440); RDW Coefficient of Variation % 14.3 % (11.5-15.5); Red Blood Count 4.76 m/uL (4.00-5.20); White Blood Count* 5.05 K/uL (4.50-11.00)
[2022-03-10 13:36] LABS: Slide Review Reflex No
[2022-03-10 13:55] LABS: Albumin* 4.2 g/dL (3.3-5.0); Chloride* 106 mmol/L (96-114); Potassium* 3.5 mmol/L (3.6-5.1); Sodium* 140 mmol/L (135-149)
[2022-03-10 13:58] LABS: Alanine Aminotransferase* 24 U/L (4-35); Alkaline Phosphatase* 69 U/L (40-150); Aspartate Amino Transferase* 22 U/L (12-35); Bilirubin Total* 0.4 mg/dL (0.1-1.5); Blood Urea Nitrogen* 14 mg/dL (5-24); Calcium* 9.1 mg/dL (8.4-10.6); Carbon Dioxide* 27 mmol/L (20-32); Creatinine* 0.6 mg/dL (0.5-1.5); Estimated Glomerular Filt Rate 119 ml/min; Glucose* 163 mg/dL (60-115); Magnesium* 1.9 mg/dL (1.5-2.6); Total Protein* 6.6 g/dL (6.0-8.3)
--- NOTE | 2022-03-14 14:03 | ONC.NURNOTE ---
Confirmed with patient that she received her shipment of Lynparaza/olaparib. She started taking it yesterday 03/13, along with her Anastrozole. The only side effect she is reporting is mild nausea a few hours after taking the medication. I instructed her that if this continues, she could try taking an anti-nausea medication with olaparib to see if that helps. Patient encouraged to call with questions or concerns.
--- NOTE | 2022-03-20 16:08 | ONC.NURNOTE ---
Called pt to f/u 1st week of Olaparib/Lynparza and Anastrazole. She reports she is overall feeling well, however she has had some GI changes. She notes she is having frequent heartburn and would like to resume Omeprazole which she took during prior chemo. She also notes having episodes of dry heaving/gagging ~1x/day; she denies general nausea/queasiness but has sudden onset nausea. Denies emesis, saying the episodes pass quickly. She also reports fatigue, which she describes as general fatigue and is manageable at this time; she is taking a nap every few days. Reviewed with Ly Mccatry APRN; refills placed for Omeprazole and Ondansetron, which worked well during previous chemo.
[2022-03-23 10:22] VITALS: BP 130/73; PULSE 89; RESP 16; TEMP 36.6; O2SAT 98
[2022-03-23 10:40] LABS: Basophils Absolute Auto 0.02 K/uL (0.00-0.30); Basophils Percent Auto 0.3 % (0.0-3.0); Eosinophils Absolute Auto 0.29 K/uL (0.00-0.50); Eosinophils Percent Auto 5.1 % (0.0-7.0); Hematocrit 38.6 % (33.0-51.0); Hemoglobin* 12.8 gm/dL (12.0-16.0); Immature Granulocytes Abs Auto 0.01 K/uL (0.00-0.30); Immature Granulocytes Pct Auto 0.2 %; Lymphocytes Percent Auto 9.9 % (20-44); Mean Corpuscular HGB Conc 33 gm/dL (32-36); Mean Corpuscular Hemoglobin 27 pg (26-34); Mean Corpuscular Volume 82 fL (80-100); Monocytes Percent Auto 5.9 % (0.0-11.0); Neutrophils Percent Auto 78.6 % (42.0-72.0); Platelet Count* 295 K/uL (140-440); RDW Coefficient of Variation % 14.5 % (11.5-15.5); Red Blood Count 4.73 m/uL (4.00-5.20); White Blood Count* 5.74 K/uL (4.50-11.00)
[2022-03-23 10:52] LABS: Slide Review Reflex No
[2022-03-23 11:40] LABS: Albumin* 4.3 g/dL (3.3-5.0); Chloride* 105 mmol/L (96-114); Potassium* 3.9 mmol/L (3.6-5.1); Sodium* 140 mmol/L (135-149)
[2022-03-23 11:43] LABS: Alanine Aminotransferase* 22 U/L (4-35); Alkaline Phosphatase* 83 U/L (40-150); Aspartate Amino Transferase* 29 U/L (12-35); Bilirubin Total* 0.5 mg/dL (0.1-1.5); Blood Urea Nitrogen* 20 mg/dL (5-24); Carbon Dioxide* 28 mmol/L (20-32); Creatinine* 0.7 mg/dL (0.5-1.5); Estimated Glomerular Filt Rate 115 ml/min; Glucose* 102 mg/dL (60-115); Total Protein* 7.1 g/dL (6.0-8.3)
[2022-03-23 11:44] LABS: Calcium* 9.3 mg/dL (8.4-10.6)
--- NOTE | 2022-03-23 15:22 | ONC.NURNOTE ---
Pt here to see Ly Mccarty APRN for side effects f/u 10 days after beginning Lynparza and Anastrazole. Nausea and gagging reported earlier this week has resolved with resuming Omeprazole. Pt has been carrying Zofran with her but has not needed it; requested to switch to Compazine as she can only receive #9 pills/refill of Zofran at her pharmacy. Pt reports mild myalgias upon waking; asked to try Claritin daily which worked well for her Taxol-related myalgias. Per Ly, scripts sent for Compazine and Claritin. Reviewed [facility] with pt, which gives clearance and also recommends 3rd molar be removed. Pt confirmed with her dentist this is a wisdom tooth; it is causing pt no pain or other issue and she would like to keep it in as of now. Dental Clearance notes no signs or concern for infection for this tooth. Pt f/u with Ashlee Padron CNP 04/10 with labs; Ly Mccarty APRN to discuss how/when to proceed with bisphosphonate therapy with Ashlee.
== END 2022-04-03 23:59 | disposition home or self-care (01) ==
LOC: CCIC 10:00
PROVIDERS: Internal Medicine Hematology & Oncology; PCP Family Medicine; Referring Provider Family Medicine; Visit Provider Clinical Nurse Specialist
DX: C50.912 Malignant neoplasm of unspecified site of left female breast (principal); Z17.0 Estrogen receptor positive status [ER+]; M25.50 Pain in unspecified joint; T45.1X5A Adverse effect of antineoplastic and immunosuppressive drugs, initial encounter; R12 Heartburn; N95.9 Unspecified menopausal and perimenopausal disorder; G62.0 Drug-induced polyneuropathy
CPT/HCPCS: 36415; 36591; 80053; 83735; 85025; 96376; 96413; 99212; 99214; 99215; J1100; J1200; J1642; J2469; J7050; J9267; S0028

== ENCOUNTER 2022-05-24 15:09 | Outpatient (CLI) | payer BC, SELFPAY | END 2022-05-24 15:10 | disposition home or self-care (01) | LOC: NFLDREF 05-26 15:27 | PROVIDERS: PCP Family Medicine; Referring Provider Family Medicine; Visit Provider Internal Medicine Hematology & Oncology | DX: R79.89 Other specified abnormal findings of blood chemistry (principal) | CPT/HCPCS: 84439; 84481 ==

== ENCOUNTER 2022-09-14 14:30 | Outpatient (RCR) | payer BC, SELFPAY ==
[2022-04-10 09:27] LABS: Basophils Absolute Auto 0.02 K/uL (0.00-0.30); Basophils Percent Auto 0.3 % (0.0-3.0); Eosinophils Absolute Auto 0.26 K/uL (0.00-0.50); Eosinophils Percent Auto 4.1 % (0.0-7.0); Hemoglobin* 12.3 gm/dL (12.0-16.0); Immature Granulocytes Abs Auto 0.03 K/uL (0.00-0.30); Immature Granulocytes Pct Auto 0.5 %; Lymphocytes Percent Auto 9.7 % (20-44); Mean Corpuscular HGB Conc 33 gm/dL (32-36); Mean Corpuscular Hemoglobin 28 pg (26-34); Mean Corpuscular Volume 83 fL (80-100); Monocytes Percent Auto 6.8 % (0.0-11.0); Neutrophils Percent Auto 78.6 % (42.0-72.0); Platelet Count* 282 K/uL (140-440); RDW Coefficient of Variation % 15.8 % (11.5-15.5); Red Blood Count 4.44 m/uL (4.00-5.20)
[2022-04-10 09:30] LABS: Slide Review Reflex No
[2022-04-10 09:43] LABS: Chloride* 106 mmol/L (96-114); Sodium* 141 mmol/L (135-149)
[2022-04-10 09:46] LABS: Alanine Aminotransferase* 24 U/L (4-35); Alkaline Phosphatase* 69 U/L (40-150); Aspartate Amino Transferase* 23 U/L (12-35); Bilirubin Total* 0.4 mg/dL (0.1-1.5); Blood Urea Nitrogen* 17 mg/dL (5-24); Carbon Dioxide* 33 mmol/L (20-32); Creatinine* 0.7 mg/dL (0.5-1.5); Estimated Glomerular Filt Rate 115 ml/min; Total Protein* 6.9 g/dL (6.0-8.3)
[2022-04-10 09:47] LABS: Calcium* 9.1 mg/dL (8.4-10.6); Glucose* 86 mg/dL (60-115); Magnesium* 1.9 mg/dL (1.5-2.6)
--- NOTE | 2022-04-11 10:29 | URNOTE ---
Received request for prior authorization for [employer] [id number], Per [employer], prior authorization is not required. Ref #[id number]
[2022-04-19 09:32] VITALS: BP 130/93; PULSE 75; RESP 16; TEMP 36.1; O2SAT 98
[2022-04-19] MEDS: ZOLEDRONIC ACID 4 MG in 0.9 % SODIUM CHLORIDE 100 ml 100 ML 420 MG IVPB (10:14)
--- NOTE | 2022-04-21 16:07 | ONC.NURNOTE ---
Addendum entered by Narda Flores 04/25/22 13:24: Patient called to let us know that she went to Urgent Care as directed last Sunday. They did a CXR which was normal and labs. Her WBC was slightly low (4.1 and ANC 3.5). They did give her a prophylactic dose of Zpak which she has completed. She reports that she is almost fully recovered now but still feels like her head is fuzzy. I assured [place] that we would discuss this further with Dr. Lim at her follow up appointment. Original Note: Pt called today describing how she received her first dose of Zometa 04/19 and has been having side effects. The evening following the infusion she developed extensive body aches and a fever. She alternated Tylenol and Ibuprofen and had T max 101.7. She felt better in the morning but is now spiking a fever again, 100.7 currently. Reviewed that bone aches and low fever can be side effects of Zometa, but 101.7 is higher than expected, especially with anti-pyretics in use. When assessed, pt notes she had a cough the last few weeks, coughing up some mucus; Covid test negative at that time. Per significance of fever, recommended pt be seen by PCP or Urgent Care today to r/u other infectious/viral processes. Pt agreeable to this plan.
[2022-05-02 09:12] LABS: Basophils Absolute Auto 0.03 K/uL (0.00-0.30); Basophils Percent Auto 0.4 % (0.0-3.0); Eosinophils Percent Auto 2.8 % (0.0-7.0); Hematocrit 37.2 % (33.0-51.0); Hemoglobin* 12.4 gm/dL (12.0-16.0); Immature Granulocytes Abs Auto 0.01 K/uL (0.00-0.30); Immature Granulocytes Pct Auto 0.1 %; Lymphocytes Percent Auto 8.6 % (20-44); Mean Corpuscular HGB Conc 33 gm/dL (32-36); Mean Corpuscular Hemoglobin 28 pg (26-34); Mean Corpuscular Volume 85 fL (80-100); Monocytes Percent Auto 7.4 % (0.0-11.0); Neutrophils Percent Auto 80.7 % (42.0-72.0); Platelet Count* 349 K/uL (140-440); RDW Coefficient of Variation % 17.7 % (11.5-15.5); Red Blood Count 4.36 m/uL (4.00-5.20); White Blood Count* 7.13 K/uL (4.50-11.00)
[2022-05-02 09:16] LABS: Slide Review Reflex No
[2022-05-02 09:24] LABS: Chloride* 105 mmol/L (96-114); Sodium* 139 mmol/L (135-149)
[2022-05-02 09:27] LABS: Alanine Aminotransferase* 23 U/L (4-35); Alkaline Phosphatase* 71 U/L (40-150); Aspartate Amino Transferase* 21 U/L (12-35); Bilirubin Total* 0.6 mg/dL (0.1-1.5); Blood Urea Nitrogen* 15 mg/dL (5-24); Calcium* 8.7 mg/dL (8.4-10.6); Carbon Dioxide* 29 mmol/L (20-32); Creatinine* 0.7 mg/dL (0.5-1.5); Est. Creatinine Clearance* 128.22; Estimated Glomerular Filt Rate 115 ml/min; Glucose* 110 mg/dL (60-115); Magnesium* 2.1 mg/dL (1.5-2.6); Total Protein* 6.9 g/dL (6.0-8.3)
[2022-05-22 10:26] LABS: Basophils Absolute Auto 0.03 K/uL (0.00-0.30); Basophils Percent Auto 0.6 % (0.0-3.0); Eosinophils Absolute Auto 0.19 K/uL (0.00-0.50); Eosinophils Percent Auto 3.6 % (0.0-7.0); Hematocrit 35.3 % (33.0-51.0); Hemoglobin* 11.8 gm/dL (12.0-16.0); Immature Granulocytes Abs Auto 0.01 K/uL (0.00-0.30); Immature Granulocytes Pct Auto 0.2 %; Lymphocytes Percent Auto 12.3 % (20-44); Mean Corpuscular HGB Conc 33 gm/dL (32-36); Mean Corpuscular Hemoglobin 30 pg (26-34); Mean Corpuscular Volume 89 fL (80-100); Monocytes Percent Auto 8.3 % (0.0-11.0); Platelet Count* 295 K/uL (140-440); RDW Coefficient of Variation % 18.9 % (11.5-15.5); Red Blood Count 3.99 m/uL (4.00-5.20); White Blood Count* 5.28 K/uL (4.50-11.00)
[2022-05-22 10:34] LABS: Slide Review Reflex No
[2022-05-22 11:15] LABS: Albumin* 4.1 g/dL (3.3-5.0); Chloride* 109 mmol/L (96-114); Sodium* 140 mmol/L (135-149)
[2022-05-22 11:16] LABS: Potassium* 4.7 mmol/L (3.6-5.1)
[2022-05-22 11:18] LABS: Alanine Aminotransferase* 24 U/L (4-35); Alkaline Phosphatase* 69 U/L (40-150); Aspartate Amino Transferase* 27 U/L (12-35); Bilirubin Total* 0.5 mg/dL (0.1-1.5); Blood Urea Nitrogen* 15 mg/dL (5-24); Carbon Dioxide* 27 mmol/L (20-32); Creatinine* 0.7 mg/dL (0.5-1.5); Est. Creatinine Clearance* 128.22; Estimated Glomerular Filt Rate 115 ml/min; Glucose* 91 mg/dL (60-115); Total Protein* 6.4 g/dL (6.0-8.3)
[2022-05-22 11:19] LABS: Calcium* 8.8 mg/dL (8.4-10.6); Magnesium* 2.1 mg/dL (1.5-2.6)
[2022-05-22 15:02] LABS: Iron* 119 ug/dL (37-170)
[2022-05-22 15:32] LABS: Thyroid Stimulating Hormone* 0.089 uIU/mL (0.270-4.20)
[2022-05-22 16:22] LABS: Percent Iron Saturation 31 % (20-50); Total Iron Binding Capacity 377 ug/dL (265-497)
[2022-05-22 17:33] LABS: Vitamin B12* 399 pg/mL (243-894)
[2022-05-22 20:43] LABS: Magnesium* 2.1 mg/dL (1.5-2.6)
[2022-05-24 17:14] LABS: Folate, Serum >22.3 ng/mL (>=5.9)
--- NOTE | 2022-05-29 15:48 | ONC.NURNOTE ---
Reviewed low TSH and normal range T3 and T4 results with Dr. Lim; recommendation is that pt sees PCP for possible Endocrinology consult. Reviewed with pt via phone.
[2022-06-19 09:28] LABS: Basophils Absolute Auto 0.02 K/uL (0.00-0.30); Basophils Percent Auto 0.4 % (0.0-3.0); Eosinophils Absolute Auto 0.16 K/uL (0.00-0.50); Eosinophils Percent Auto 3.4 % (0.0-7.0); Hematocrit 37.1 % (33.0-51.0); Hemoglobin* 12.4 gm/dL (12.0-16.0); Immature Granulocytes Abs Auto 0.02 K/uL (0.00-0.30); Immature Granulocytes Pct Auto 0.4 %; Lymphocytes Percent Auto 10.8 % (20-44); Mean Corpuscular HGB Conc 33 gm/dL (32-36); Mean Corpuscular Hemoglobin 30 pg (26-34); Mean Corpuscular Volume 91 fL (80-100); Monocytes Percent Auto 7.5 % (0.0-11.0); Neutrophils Percent Auto 77.5 % (42.0-72.0); Platelet Count* 300 K/uL (140-440); Red Blood Count 4.08 m/uL (4.00-5.20); White Blood Count* 4.65 K/uL (4.50-11.00)
[2022-06-19 09:30] LABS: Slide Review Reflex No
[2022-06-19 09:38] LABS: Albumin* 4.2 g/dL (3.3-5.0); Chloride* 107 mmol/L (96-114)
[2022-06-19 09:39] LABS: Potassium* 4.2 mmol/L (3.6-5.1); Sodium* 140 mmol/L (135-149)
[2022-06-19 09:41] LABS: Bilirubin Total* 0.5 mg/dL (0.1-1.5); Carbon Dioxide* 29 mmol/L (20-32); Creatinine* 0.8 mg/dL (0.5-1.5); Est. Creatinine Clearance* 112.19; Estimated Glomerular Filt Rate 98 ml/min
[2022-06-19 09:42] LABS: Alanine Aminotransferase* 24 U/L (4-35); Alkaline Phosphatase* 62 U/L (40-150); Aspartate Amino Transferase* 24 U/L (12-35); Blood Urea Nitrogen* 20 mg/dL (5-24); Glucose* 73 mg/dL (60-115); Magnesium* 1.9 mg/dL (1.5-2.6); Total Protein* 6.9 g/dL (6.0-8.3)
--- NOTE | 2022-06-19 15:41 | ONC.NURNOTE ---
Labs reviewed with Dr. Lim; ok to continue Kathi. F/u 1 mo with labs/Dr. Lim appt.
[2022-07-17 08:48] LABS: Basophils Percent Auto 0.2 % (0.0-3.0); Eosinophils Percent Auto 3.1 % (0.0-7.0); Hematocrit 36.1 % (33.0-51.0); Hemoglobin* 12.1 gm/dL (12.0-16.0); Lymphocytes Percent Auto 11.6 % (20-44); Mean Corpuscular HGB Conc 34 gm/dL (32-36); Mean Corpuscular Hemoglobin 32 pg (26-34); Mean Corpuscular Volume 95 fL (80-100); Monocytes Percent Auto 6.4 % (0.0-11.0); Neutrophils Percent Auto 78.7 % (42.0-72.0); Platelet Count* 245 K/uL (140-440); RDW Coefficient of Variation % 15.1 % (11.5-15.5); Red Blood Count 3.82 m/uL (4.00-5.20); White Blood Count* 4.24 K/uL (4.50-11.00)
[2022-07-17 08:49] LABS: Slide Review Reflex No
[2022-07-17 09:15] LABS: Chloride* 104 mmol/L (96-114); Potassium* 4.1 mmol/L (3.6-5.1); Sodium* 140 mmol/L (135-149)
[2022-07-17 09:17] LABS: Creatinine* 0.7 mg/dL (0.5-1.5); Est. Creatinine Clearance* 124.18; Estimated Glomerular Filt Rate 115 ml/min
[2022-07-17 09:18] LABS: Alanine Aminotransferase* 22 U/L (4-35); Alkaline Phosphatase* 58 U/L (40-150); Aspartate Amino Transferase* 23 U/L (12-35); Bilirubin Total* 0.4 mg/dL (0.1-1.5); Blood Urea Nitrogen* 19 mg/dL (5-24); Carbon Dioxide* 31 mmol/L (20-32); Glucose* 132 mg/dL (60-115); Total Protein* 6.5 g/dL (6.0-8.3)
[2022-08-14 09:33] LABS: Basophils Absolute Auto 0.01 K/uL (0.00-0.30); Basophils Percent Auto 0.2 % (0.0-3.0); Eosinophils Absolute Auto 0.12 K/uL (0.00-0.50); Eosinophils Percent Auto 2.4 % (0.0-7.0); Hematocrit 35.9 % (33.0-51.0); Hemoglobin* 12.2 gm/dL (12.0-16.0); Immature Granulocytes Abs Auto 0.01 K/uL (0.00-0.30); Immature Granulocytes Pct Auto 0.2 %; Lymphocytes Percent Auto 10.1 % (20-44); Mean Corpuscular HGB Conc 34 gm/dL (32-36); Mean Corpuscular Hemoglobin 32 pg (26-34); Mean Corpuscular Volume 93 fL (80-100); Monocytes Percent Auto 7.3 % (0.0-11.0); Neutrophils Percent Auto 79.8 % (42.0-72.0); Platelet Count* 278 K/uL (140-440); RDW Coefficient of Variation % 14.4 % (11.5-15.5); Red Blood Count 3.85 m/uL (4.00-5.20); White Blood Count* 5.06 K/uL (4.50-11.00)
[2022-08-14 09:34] LABS: Slide Review Reflex No
[2022-08-14 09:47] LABS: Albumin* 4.1 g/dL (3.3-5.0); Chloride* 105 mmol/L (96-114)
[2022-08-14 09:48] LABS: Potassium* 3.9 mmol/L (3.6-5.1); Sodium* 140 mmol/L (135-149)
[2022-08-14 09:50] LABS: Bilirubin Total* 0.5 mg/dL (0.1-1.5); Creatinine* 0.6 mg/dL (0.5-1.5); Est. Creatinine Clearance* 144.88; Estimated Glomerular Filt Rate 119 ml/min
[2022-08-14 09:51] LABS: Alanine Aminotransferase* 22 U/L (4-35); Alkaline Phosphatase* 61 U/L (40-150); Aspartate Amino Transferase* 23 U/L (12-35); Blood Urea Nitrogen* 17 mg/dL (5-24); Carbon Dioxide* 28 mmol/L (20-32); Glucose* 107 mg/dL (60-115); Total Protein* 6.7 g/dL (6.0-8.3)
[2022-09-14 14:45] LABS: Basophils Absolute Auto 0.01 K/uL (0.00-0.30); Basophils Percent Auto 0.2 % (0.0-3.0); Eosinophils Absolute Auto 0.09 K/uL (0.00-0.50); Eosinophils Percent Auto 1.7 % (0.0-7.0); Hematocrit 32.6 % (33.0-51.0); Hemoglobin* 11.1 gm/dL (12.0-16.0); Immature Granulocytes Abs Auto 0.04 K/uL (0.00-0.30); Immature Granulocytes Pct Auto 0.7 %; Lymphocytes Percent Auto 12.9 % (20-44); Mean Corpuscular HGB Conc 34 gm/dL (32-36); Mean Corpuscular Hemoglobin 32 pg (26-34); Mean Corpuscular Volume 93 fL (80-100); Monocytes Percent Auto 6.5 % (0.0-11.0); Platelet Count* 267 K/uL (140-440); RDW Coefficient of Variation % 14.5 % (11.5-15.5); Red Blood Count 3.51 m/uL (4.00-5.20); White Blood Count* 5.42 K/uL (4.50-11.00)
[2022-09-14 14:48] LABS: Slide Review Reflex No
[2022-09-14 15:05] LABS: Albumin* 4.1 g/dL (3.3-5.0); Chloride* 103 mmol/L (96-114); Sodium* 138 mmol/L (135-149)
[2022-09-14 15:06] LABS: Potassium* 3.6 mmol/L (3.6-5.1)
[2022-09-14 15:07] LABS: Creatinine* 0.9 mg/dL (0.5-1.5); Est. Creatinine Clearance* 96.59; Estimated Glomerular Filt Rate 85 ml/min
[2022-09-14 15:08] LABS: Alkaline Phosphatase* 70 U/L (40-150); Aspartate Amino Transferase* 28 U/L (12-35); Bilirubin Total* 0.3 mg/dL (0.1-1.5); Blood Urea Nitrogen* 20 mg/dL (5-24); Carbon Dioxide* 29 mmol/L (20-32); Glucose* 108 mg/dL (60-115); Total Protein* 6.6 g/dL (6.0-8.3)
[2022-09-14 15:09] LABS: Alanine Aminotransferase* 21 U/L (4-35); Magnesium* 1.9 mg/dL (1.5-2.6)
== END 2022-10-07 23:59 | disposition home or self-care (01) ==
LOC: CCIC 14:30
PROVIDERS: Clinical Nurse Specialist; Physician Assistant; PCP Family Medicine; Referring Provider Family Medicine; Visit Provider Internal Medicine Hematology & Oncology
DX: C50.912 Malignant neoplasm of unspecified site of left female breast (principal); Z17.0 Estrogen receptor positive status [ER+]; Z79.811 Long term (current) use of aromatase inhibitors; Z90.13 Acquired absence of bilateral breasts and nipples; M25.50 Pain in unspecified joint; T45.1X5A Adverse effect of antineoplastic and immunosuppressive drugs, initial encounter; R21 Rash and other nonspecific skin eruption; R23.2 Flushing; R53.83 Other fatigue; I89.0 Lymphedema, not elsewhere classified
CPT/HCPCS: 36415; 80053; 82607; 82728; 82746; 83540; 83550; 83735; 84443; 85025; 96365; 99212; 99214; 99215; J3489

== ENCOUNTER 2023-03-12 08:45 | Outpatient (RCR) | payer BC, SELFPAY ==
[2022-10-09 14:16] LABS: Basophils Absolute Auto 0.02 K/uL (0.00-0.30); Basophils Percent Auto 0.4 % (0.0-3.0); Eosinophils Absolute Auto 0.13 K/uL (0.00-0.50); Eosinophils Percent Auto 2.3 % (0.0-7.0); Hematocrit 35.3 % (33.0-51.0); Hemoglobin* 12.1 gm/dL (12.0-16.0); Immature Granulocytes Abs Auto 0.01 K/uL (0.00-0.30); Immature Granulocytes Pct Auto 0.2 %; Lymphocytes Percent Auto 12.5 % (20-44); Mean Corpuscular HGB Conc 34 gm/dL (32-36); Mean Corpuscular Hemoglobin 32 pg (26-34); Mean Corpuscular Volume 92 fL (80-100); Monocytes Percent Auto 6.6 % (0.0-11.0); Platelet Count* 310 K/uL (140-440); Red Blood Count 3.82 m/uL (4.00-5.20)
[2022-10-09 14:21] LABS: Slide Review Reflex No
[2022-10-09 14:33] LABS: Albumin* 4.1 g/dL (3.3-5.0); Chloride* 105 mmol/L (96-114); Sodium* 139 mmol/L (135-149)
[2022-10-09 14:34] VITALS: BP 116/76; PULSE 97; RESP 16; TEMP 36.2; O2SAT 97
[2022-10-09 14:34] LABS: Potassium* 3.8 mmol/L (3.6-5.1)
[2022-10-09 14:36] LABS: Alanine Aminotransferase* 20 U/L (4-35); Alkaline Phosphatase* 67 U/L (40-150); Aspartate Amino Transferase* 23 U/L (12-35); Bilirubin Total* 0.5 mg/dL (0.1-1.5); Blood Urea Nitrogen* 16 mg/dL (5-24); Carbon Dioxide* 26 mmol/L (20-32); Creatinine* 0.8 mg/dL (0.5-1.5); Estimated Glomerular Filt Rate 98 ml/min; Glucose* 110 mg/dL (60-115); Total Protein* 6.6 g/dL (6.0-8.3)
[2022-10-09 14:37] LABS: Calcium* 8.9 mg/dL (8.4-10.6)
[2022-10-09] MEDS: 0.9 % SODIUM CHLORIDE 1000 ml 1,000 ML IV (15:00)
[2022-10-09] MEDS: ZOLEDRONIC ACID 3 MG in 0.9 % SODIUM CHLORIDE 100 ml 100 ML 415 MG IVPB (16:04)
[2022-11-08 10:40] LABS: Basophils Percent Auto 0.5 % (0.0-3.0); Eosinophils Percent Auto 2.7 % (0.0-7.0); Hematocrit 36.4 % (33.0-51.0); Hemoglobin* 12.1 gm/dL (12.0-16.0); Immature Granulocytes Pct Auto 0.2 %; Lymphocytes Percent Auto 13.1 % (20-44); Mean Corpuscular HGB Conc 33 gm/dL (32-36); Mean Corpuscular Hemoglobin 31 pg (26-34); Mean Corpuscular Volume 94 fL (80-100); Monocytes Percent Auto 7.5 % (0.0-11.0); Platelet Count* 296 K/uL (140-440); RDW Coefficient of Variation % 15.1 % (11.5-15.5); Red Blood Count 3.86 m/uL (4.00-5.20); White Blood Count* 4.12 K/uL (4.50-11.00)
[2022-11-08 10:44] LABS: Slide Review Reflex No
[2022-11-08 10:57] LABS: Albumin* 4.1 g/dL (3.3-5.0)
[2022-11-08 10:58] LABS: Chloride* 107 mmol/L (96-114); Potassium* 4.2 mmol/L (3.6-5.1); Sodium* 137 mmol/L (135-149)
[2022-11-08 11:00] LABS: Anion Gap 6 mEq/L (7-15); Aspartate Amino Transferase* 21 U/L (12-35); Bilirubin Total* 0.5 mg/dL (0.1-1.5); Carbon Dioxide* 24 mmol/L (20-32); Creatinine* 0.6 mg/dL (0.5-1.5); Estimated Glomerular Filt Rate 119 ml/min; Total Protein* 6.7 g/dL (6.0-8.3)
[2022-11-08 11:01] LABS: Alanine Aminotransferase* 19 U/L (4-35); Alkaline Phosphatase* 63 U/L (40-150); Blood Urea Nitrogen* 17 mg/dL (5-24); Calcium* 9.2 mg/dL (8.4-10.6); Glucose* 106 mg/dL (60-115)
--- NOTE | 2022-11-09 08:29 | ONC.NURNOTE ---
Lm for pt reviewing her labs are WNL; ok to continue Kathi. RTC 12/04 with labs.
[2022-12-04 08:21] LABS: Basophils Percent Auto 0.2 % (0.0-3.0); Eosinophils Percent Auto 2.9 % (0.0-7.0); Hemoglobin* 11.8 gm/dL (12.0-16.0); Immature Granulocytes Pct Auto 0.2 %; Lymphocytes Percent Auto 12.2 % (20-44); Mean Corpuscular HGB Conc 34 gm/dL (32-36); Mean Corpuscular Hemoglobin 32 pg (26-34); Mean Corpuscular Volume 94 fL (80-100); Monocytes Percent Auto 6.8 % (0.0-11.0); Neutrophils Percent Auto 77.7 % (42.0-72.0); Platelet Count* 284 K/uL (140-440); RDW Coefficient of Variation % 14.5 % (11.5-15.5); Red Blood Count 3.74 m/uL (4.00-5.20); White Blood Count* 4.42 K/uL (4.50-11.00)
[2022-12-04 08:32] LABS: Slide Review Reflex No
[2022-12-04 08:33] LABS: Chloride* 106 mmol/L (96-114)
[2022-12-04 08:34] LABS: Albumin* 4.1 g/dL (3.3-5.0); Potassium* 3.8 mmol/L (3.6-5.1); Sodium* 140 mmol/L (135-149)
[2022-12-04 08:36] LABS: Anion Gap 10 mEq/L (7-15); Aspartate Amino Transferase* 40 U/L (12-35); Bilirubin Total* 0.3 mg/dL (0.1-1.5); Carbon Dioxide* 24 mmol/L (20-32); Creatinine* 0.6 mg/dL (0.5-1.5); Estimated Glomerular Filt Rate 119 ml/min
[2022-12-04 08:37] LABS: Alanine Aminotransferase* 20 U/L (4-35); Alkaline Phosphatase* 62 U/L (40-150); Blood Urea Nitrogen* 19 mg/dL (5-24); Calcium* 9.3 mg/dL (8.4-10.6); Glucose* 100 mg/dL (60-115); Total Protein* 6.6 g/dL (6.0-8.3)
[2023-01-01 09:48] LABS: Basophils Absolute Auto 0.02 K/uL (0.00-0.30); Basophils Percent Auto 0.4 % (0.0-3.0); Eosinophils Absolute Auto 0.12 K/uL (0.00-0.50); Eosinophils Percent Auto 2.5 % (0.0-7.0); Hematocrit 36.9 % (33.0-51.0); Hemoglobin* 12.3 gm/dL (12.0-16.0); Immature Granulocytes Abs Auto 0.02 K/uL (0.00-0.30); Immature Granulocytes Pct Auto 0.4 %; Lymphocytes Percent Auto 13.2 % (20-44); Mean Corpuscular HGB Conc 33 gm/dL (32-36); Mean Corpuscular Hemoglobin 32 pg (26-34); Mean Corpuscular Volume 97 fL (80-100); Monocytes Percent Auto 7.2 % (0.0-11.0); Neutrophils Percent Auto 76.3 % (42.0-72.0); Platelet Count* 307 K/uL (140-440); RDW Coefficient of Variation % 14.6 % (11.5-15.5); Red Blood Count 3.82 m/uL (4.00-5.20); White Blood Count* 4.86 K/uL (4.50-11.00)
[2023-01-01 09:51] LABS: Albumin* 4.1 g/dL (3.3-5.0); Chloride* 107 mmol/L (96-114); Potassium* 4.1 mmol/L (3.6-5.1); Slide Review Reflex No; Sodium* 142 mmol/L (135-149)
[2023-01-01 09:54] LABS: Alanine Aminotransferase* 18 U/L (4-35); Alkaline Phosphatase* 60 U/L (40-150); Anion Gap 5 mEq/L (7-15); Aspartate Amino Transferase* 29 U/L (12-35); Bilirubin Total* 0.5 mg/dL (0.1-1.5); Blood Urea Nitrogen* 21 mg/dL (5-24); Carbon Dioxide* 30 mmol/L (20-32); Creatinine* 0.7 mg/dL (0.5-1.5); Estimated Glomerular Filt Rate 114 ml/min; Glucose* 96 mg/dL (60-115); Total Protein* 6.9 g/dL (6.0-8.3)
[2023-01-01 09:55] LABS: Calcium* 9.2 mg/dL (8.4-10.6)
[2023-01-29 09:59] LABS: Basophils Absolute Auto 0.02 K/uL (0.00-0.30); Basophils Percent Auto 0.3 % (0.0-3.0); Eosinophils Absolute Auto 0.14 K/uL (0.00-0.50); Eosinophils Percent Auto 2.4 % (0.0-7.0); Hematocrit 35.8 % (33.0-51.0); Hemoglobin* 11.8 gm/dL (12.0-16.0); Immature Granulocytes Abs Auto 0.01 K/uL (0.00-0.30); Immature Granulocytes Pct Auto 0.2 %; Lymphocytes Percent Auto 9.2 % (20-44); Mean Corpuscular HGB Conc 33 gm/dL (32-36); Mean Corpuscular Hemoglobin 31 pg (26-34); Mean Corpuscular Volume 95 fL (80-100); Monocytes Percent Auto 7.1 % (0.0-11.0); Neutrophils Percent Auto 80.8 % (42.0-72.0); Platelet Count* 292 K/uL (140-440); RDW Coefficient of Variation % 14.7 % (11.5-15.5); Red Blood Count 3.76 m/uL (4.00-5.20); White Blood Count* 5.79 K/uL (4.50-11.00)
[2023-01-29 10:05] LABS: Slide Review Reflex No
[2023-01-29 10:13] LABS: Albumin* 4.1 g/dL (3.3-5.0); Chloride* 107 mmol/L (96-114)
[2023-01-29 10:14] LABS: Sodium* 142 mmol/L (135-149)
[2023-01-29 10:16] LABS: Alkaline Phosphatase* 75 U/L (40-150); Anion Gap 9 mEq/L (7-15); Aspartate Amino Transferase* 24 U/L (12-35); Bilirubin Total* 0.3 mg/dL (0.1-1.5); Blood Urea Nitrogen* 18 mg/dL (5-24); Carbon Dioxide* 26 mmol/L (20-32); Creatinine* 0.8 mg/dL (0.5-1.5); Estimated Glomerular Filt Rate 97 ml/min; Total Protein* 6.7 g/dL (6.0-8.3)
[2023-01-29 10:17] LABS: Alanine Aminotransferase* 22 U/L (4-35); Calcium* 8.8 mg/dL (8.4-10.6); Glucose* 93 mg/dL (60-115)
[2023-03-12 09:31] LABS: Basophils Absolute Auto 0.01 K/uL (0.00-0.30); Basophils Percent Auto 0.2 % (0.0-3.0); Eosinophils Absolute Auto 0.12 K/uL (0.00-0.50); Eosinophils Percent Auto 2.7 % (0.0-7.0); Hematocrit 35.9 % (33.0-51.0); Hemoglobin* 12.1 gm/dL (12.0-16.0); Lymphocytes Percent Auto 13.5 % (20-44); Mean Corpuscular HGB Conc 34 gm/dL (32-36); Mean Corpuscular Hemoglobin 32 pg (26-34); Mean Corpuscular Volume 94 fL (80-100); Neutrophils Percent Auto 75.6 % (42.0-72.0); Platelet Count* 286 K/uL (140-440); RDW Coefficient of Variation % 14.6 % (11.5-15.5); Red Blood Count 3.83 m/uL (4.00-5.20); White Blood Count* 4.52 K/uL (4.50-11.00)
[2023-03-12 09:48] LABS: Slide Review Reflex No
[2023-03-12 09:50] LABS: Albumin* 4.1 g/dL (3.3-5.0); Chloride* 107 mmol/L (96-114); Potassium* 4.1 mmol/L (3.6-5.1); Sodium* 140 mmol/L (135-149)
[2023-03-12 09:52] LABS: Creatinine* 0.7 mg/dL (0.5-1.5); Estimated Glomerular Filt Rate 114 ml/min
[2023-03-12 09:53] LABS: Alanine Aminotransferase* 18 U/L (4-35); Alkaline Phosphatase* 65 U/L (40-150); Anion Gap 8 mEq/L (7-15); Aspartate Amino Transferase* 21 U/L (12-35); Bilirubin Total* 0.5 mg/dL (0.1-1.5); Blood Urea Nitrogen* 18 mg/dL (5-24); Carbon Dioxide* 25 mmol/L (20-32); Glucose* 104 mg/dL (60-115); Total Protein* 6.6 g/dL (6.0-8.3)
[2023-03-12 09:54] LABS: Calcium* 8.9 mg/dL (8.4-10.6)
== END 2023-04-07 23:59 | disposition home or self-care (01) ==
LOC: CCIC 08:45
PROVIDERS: PCP Family Medicine; Referring Provider Family Medicine; Visit Provider Internal Medicine Hematology & Oncology
DX: C50.912 Malignant neoplasm of unspecified site of left female breast (principal); Z17.0 Estrogen receptor positive status [ER+]; Z79.811 Long term (current) use of aromatase inhibitors; R23.2 Flushing; Z90.13 Acquired absence of bilateral breasts and nipples; M25.50 Pain in unspecified joint; T45.1X5A Adverse effect of antineoplastic and immunosuppressive drugs, initial encounter; R12 Heartburn
CPT/HCPCS: 36415; 80053; 85025; 96360; 96376; 99212; 99213; 99214; 99215; G0463; J3489; J7030

== ENCOUNTER 2023-07-16 09:40 | Outpatient (CLI) | payer BC, SELFPAY ==
--- OUTSIDE RECORDS SUMMARY | 2023-07-16 09:45 | XMS_ITS | Clinical Summary ---
Author Name Unknown Organization [facility] Address [place], [place] [address] Care Team Providers Care Insurance Account Executive Name Role Phone Jarod Vega MD Primary Care Provider Milena Cutler RN Unavailable [phone] Allergies Active Allergy Reactions Criticality Noted Date Comments Adhesive Rash Unknown 06/03/2021 Covid-19 Vaccine, Mrna, [id number], Lnp-S ([employer]) Other - Describe In Comment Field 03/23/2023 High fever, severe arthralgias, sick for about 7 days. House Dust *Unknown Unknown 05/01/2007 Latex Rash Unknown 01/11/2018 Lisinopril Cough 01/18/2022 Mold Extracts *Unknown Unknown 05/01/2007 Nickel Rash,Itching Unknown 06/03/2021 Pollen Extracts *Unknown Unknown 05/01/2007 Medications Medication Sig Dispensed Refills Start Date End Date Status [id number]-Ca carb-vit K 18 mg iron-400 mcg-500 mg tab Take 1 Tablet by mouth once daily. 0 12/27/2017 Active Post Mastectomy BraIndications:Mal ignant neoplasm of left female breast, unspecified estrogen receptor status, unspecified site of breast (HC),Absence of breast, acquired, bilateral For personal use. Dispense as many as allowable by insurance. 3 Packet 2 12/07/2021 Active Breast ProsthesisIndicati ons:Malignant neoplasm of left female breast, unspecified estrogen receptor status, unspecified site of breast (HC),Absence of breast, acquired, bilateral For personal use. Right Breast Prosthesis 1 Each 12/07/2021 Active Breast ProsthesisIndicati ons:Malignant neoplasm of left female breast, unspecified estrogen receptor status, unspecified site of breast (HC),Absence of breast, acquired, bilateral For personal use. Left Breast Prosthesis 1 Each 12/07/2021 Active calcium carbonate-vitamin D3 600 mg-12.5 mcg (500 unit) cap Take 1 capsule by mouth 2 times per day with meals 300 Capsule 5 02/21/2022 Active magnesium oxide (MAG-OX 400) 400 mg tablet Take 1 tablet by mouth 2 times daily 60 Tablet 11 05/23/2022 Active biotin-keratin 10,000-100 mcg-mg tab Take by mouth. 0 06/07/2022 Active Breast ProsthesisIndicati ons:Infiltrating ductal carcinoma of female breast, unspecified laterality (HC),S/P bilateral mastectomy Right Breast Prosthesis. For personal use. 1 Each 11/07/2022 Active Breast ProsthesisIndicati ons:Infiltrating ductal carcinoma of female breast, unspecified laterality (HC),S/P bilateral mastectomy Left Breast Prosthesis. For personal use. 1 Each 11/07/2022 Active Post Mastectomy BraIndications:Inf iltrating ductal carcinoma of female breast, unspecified laterality (HC),S/P bilateral mastectomy For personal use. 3 Packet 3 11/07/2022 Active omeprazole (PRILOSEC) 20 mg Delayed-Release capsule Take 1 capsule by mouth daily 90 Capsule 1 12/04/2022 Active anastrozole (ARIMIDEX) 1 mg tablet Take 1 tablet by mouth every day 90 Tablet 3 03/21/2023 Active loratadine (CLARITIN) 10 mg tabletIndications: Allergy, sequela Take 1 Tablet (10 mg) by mouth once daily. 90 Tablet 3 03/23/2023 Active FLUoxetine (PROZAC) 40 mg capsuleIndications :Depression, unspecified depression type Take 1 capsule by mouth every morning. 90 Capsule 3 03/23/2023 Active losartan-hydrochlo rothiazide, 50-12.5 mg, (HYZAAR) 50-12.5 mg tabletIndications: Benign essential HTN Take 1 tablet by mouth once daily. 90 Tablet 3 03/23/2023 Active montelukast (SINGULAIR) 10 mg tabletIndications: Allergy, sequela,Mild intermittent asthma without complication Take 1 tablet (10 mg) by mouth at bedtime. 90 Tablet 3 03/23/2023 Active magnesium oxide (MAG-OX 400) 400 mg tablet Take 1 tablet by mouth 2 times daily 120 Tablet 5 03/26/2023 Active hyoscyamine (LEVSIN) 0.125 mg tablet Active albuterol HFA (PRO-AIR; VENTOLIN; PROVENTIL) 90 mcg/actuation inhalerIndications :Mild intermittent asthma without complication Inhale 1-2 puffs by mouth every 4 hours if needed. 8.5 g 1 06/20/2023 Active amoxicillin (AMOXIL) 500 mg capsule Take 1 Capsule (500 mg) by mouth three times daily until gone 30 Capsule 07/12/2023 Active albuterol HFA (PRO-AIR; VENTOLIN; PROVENTIL) 90 mcg/actuation inhalerIndications :Mild intermittent asthma without complication Inhale 1-2 puffs by mouth every 4 hours if needed. 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 See letter dated 06/08/2021 from cancer genetic counselor for details. Sheela Ruiz, , [facility] 06/09/2021 9:48 AM Irritable bowel syndrome 09/08/2020 Allergic rhinitis 09/08/2020 Depressive disorder 09/08/2020 Unspecified asthma(493.90) Resolved Problems Problem Noted Date Diagnosed Date Resolved Date Pap smear for cervical cancer screening 09/27/2022 03/23/2023 Overview: 05/2019 NIL/HPV negative 08/2022 NIL/HPV negative Plan: Pap and HPV due 08/2027 Immunocompromised state due to drug therapy 06/05/2022 03/23/2023 Asthma 09/08/2020 03/23/2023 Plantar fascial fibromatosis 03/28/2007 03/23/2023 Encounters Date Type Department Care Team Description 07/08/2023 7:10 PM CDT Office Visit [facility] [place] [address] [place] [phone] Poonam Melendez MD Neck Pain/problem 07/08/2023 Travel 07/04/2023 Patient Outreach [facility] Care Management - Advanced Care Team [address] [place] [address] Trev Butler Complex Care Management ([facility] [employer] Engagement Outreach - Payer Referral) 06/19/2023 Refill [facility] [address] [place] [address] Jarod Vega MD Refill Request (Albuterol Hfa) 05/21/2023 1:15 PM CDT Office Visit [facility] [address] [place] [place] [address] Uzma Fall, RISK CONSULTANT Cough (Says she has a cough, fever and this morning thinks she might have a sinus infection, because she was dizzy- did x2 COVID-19 test were negative- cough and fever have been going on for x2 weeks) 05/21/2023 Travel 05/11/2023 Telephone [facility] [address] [place] [address] Radha Schneider PA Results 05/08/2023 3:00 PM BARREL PAINTER Office Visit [facility] [address] [place] [address] Radha Schneider PA Derm Problem 05/08/2023 Travel 04/19/2023 Telephone [facility] [address] [place] [address] Jarod Vega MD Form from Last 3 Months Immunizations Name Administration Dates Next Due COVID-19 vaccine ([employer] NTBoatSetter 30mcg/0.3mL) PF, MDV 03/30/2020,03/09/2020 Hepatitis B (Peds) 03/19/1998,10/09/1997, 998 Human Papilloma Virus Vaccine 07/01/2012, 010,04/19/2009 Influenza A (H1N1), Inactiva alysa (Age >=3 Years) 01/03/2009 Influenza, IIV3 (Age >=3 years) 02/01/2010,04/19,02/09/2003 Influenza, IIV4 12/26/2022,,12/14/2020,2019,11/29/2018,11/30/2017,01/31/2017 Influenza, IIV4 (=>6mos) MDV 11/28/2018 MMR 09/01/1997 Pneumococcal Conj 20-valent (Prevnar 20) 03/23/2023 Pneumococcal Poly,23-Valent (Pneumovax) 01/14/2002 Td (Age >=7 Years) 09/01/1997 Tdap 03/23/2023,08/15/2013,04/19/2009 Family History Medical History Relation Name Comments Other Brother 5 Acid Reflux Diabetes Father Diabetes Maternal Grandmother Allergies Mother Diabetes Mother Cancer-breast Other paternal great grandmother x2 Cancer-breast Paternal Aunt premenopausal Cancer-prostate Paternal Grandfather Diabetes Paternal Grandmother Other Sister 3 Migraines Anesthesia Problem No Family History Cancer-ovarian No Family History Relation Name Status Comments Brother 1 Alive Brother 2 Alive Brother 3 Alive Brother 4 Alive Brother 5 Father Alive Maternal Grandfather Maternal Grandmother Mother Alive Other Paternal Aunt Paternal Grandfather Paternal Grandmother Sister 1 Alive Sister 2 Alive Sister 3 Social History Tobacco Use Types Packs/Day Years Used Date Smoking Tobacco: Former Cigarettes Q uit: 04/2021 Smokeless Tobacco: Never Tobacco Cessation:Counseling Given: No Comments:former smoker .50 / week / Does have second hand smoke exposure Alcohol Use Standard Drinks/Week Comments Yes 0 (1 standard drink = 0.6 oz pur e alcohol) occasional PHQ-2 Answer Date Recorded PHQ-2 TOTAL SCORE 0 03/23/2023 Social Connections Answer Date Recorded Frequency of Communication with Friends and Fami ly 0 05/21/2023 Financial Resource Strain Answer Date R ecorded Difficulty of Paying Living Expenses 3 05/21/2023 Difficulty of Paying Living Expenses Not on file 05/21/2023 Food Insecurity Answer Date Recorded Worried About Running Out of Food in the Last Ye ar 1 05/21/2023 Transportation Needs Answer Date Record ed Lack of Transportation (Medical) 1 05/21/2023 Housing Stability Answer Date Recorded Unable to Pay for Housing in the Last Year 1 05/21/2023 Sex and Gender Information Value Date Recorded Sex Assigned at Not on file Gender Identity Not on file Sexual Orientation Not on file Travel History Travel Start Travel End [place] 06/08/2023 07/08/2023 Obstetrics History Para Term AB IAB SAB Ectopic Multiple Livin g Live Births 2 1 1 0 0 0 0 0 0 1 Date Outcome GA Total Labor Labor/2nd/3rd Weight Sex Delivery Anes PTL Yanira A1 A5 Name Cl in Comments:System Genera alysa. Please review and update details. Term Last Filed Vital Signs Vital Sign Reading Time Taken Comments Blood Pressure 174/107 07/08/2023 8:04 PM CDT Pulse 88 07/08/2023 8:01 PM CDT Temperature 36.2 ??C (97.1 ??F) 07/08/2023 8:01 PM CD T Respiratory Rate 18 07/08/2023 8:01 PM CDT Oxygen Saturation 99% 07/08/2023 8:01 PM CDT Inhaled Oxygen Concentration - - Weight 143.3 kg (316 lb) 05/21/2023 1:12 PM CDT Height 177.8 cm (5' 10) 03/23/2023 11:52 AM BARREL PAINTER Body Mass Index 45.34 03/23/2023 11:52 AM BARREL PAINTER Plan of Treatment Health Maintenance Due Date Last Done Comments HIV for age 15-65 2000 Hepatitis C screening for age 18-79 12/09/2003 COVID-19 vaccine series (3 - Pfizer risk series) 04/27/2020 03/30/2020, 03/09/2020 Influenza for age 9-49 11/04/2023 , 12/21/2021, 12/14/2020, Additional history exists BMI (ht and wt on same day) for age 18+ 03/23/2024 03/23/2023, 11/24/2021, 04/29/2021, Additional history exists Depression screening for age 12+ 03/23/2024 03/23/2023, 12/22/2021, 12/21/2021, Additional history exists Pap test for age 21-65 08/29/2027 , 08/28/2022, 05/12/2019, Additional history exists Tetanus booster 03/23/2033 03/23/2023, 08/03, 04/19/2009, Additional history exists Pneumococcal series for age 6-64 Aged Out 03/23/2023, 01/14/2002 No longer eligibl e based on patient's age to complete this topic Tdap Completed 03/23/2023, 08/03, 04/19/2009 Procedures Procedure Name Priority Date/Time Associated Diagnosis Comments STREP A PCR Routine 07/08/2023 8:37 PM CDT Neck pain THROAT RAPID STREP A WITH REFLEX Routine 07/08/2023 8:37 PM CDT Neck pain CBC WITH AUTO DIFFERENTIAL Routine 07/08/2023 8:20 PM CDT Neck pain CBC WITH AUTO DIFFERENTIAL Routine 07/08/2023 8:20 PM CDT Neck pain PATH TISSUE EXAM Routine 05/08/2023 3:24 PM BARREL PAINTER Neoplasm of uncertain behavior [employer] PAYROLL CONSULTANT THIN PREP PAP SCREEN IMAGED Routine 08/28/2022 3:00 PM CDT Cervical cancer screening from Last 3 Months or Most Recently Relevant to Health Maintenance Results * STREP A PCR (07/08/2023 8:37 PM CDT) GROUP A STREP Negative 07/09/2023 6:38 PM CDT [facility] Throat SPECIMEN FROM THROAT / Unknown Non-Blood / Unknown 07/08/2023 8:37 PM CDT 07/08/2023 8:44 PM CDT Poonam Melendez MD MICROBIOLOGY [facility] [address] [place] [address], * THROAT RAPID STREP A WITH REFLEX (07/08/2023 8:37 PM CDT) STREP A ANTIGEN Negative 07/08/2023 8:44 PM CDT [facility] Comment:PCR to follow. Throat SPECIMEN FROM THROAT / Unknown Non-Blood / Unknown 07/08/2023 8:37 PM CDT 07/08/2023 8:37 PM CDT Poonam Melendez MD MICROBIOLOGY [facility] [address] [place] [address], [place] * CBC WITH AUTO DIFFERENTIAL (07/08/2023 8:20 PM CDT) WHITE BLOOD COUNT 6.6 4.5 - 11.0 thou/cu mm 07/08/2023 8:26 PM CDT [facility] RED BLOOD COUNT 4.37 4.00 - 5.20 mil/cu mm 07/08/2023 8:26 PM CDT [facility] HEMOGLOBIN 12.4 12.0 - 16.0 g/dL 07/08/2023 8:26 PM CDT [facility] HEMATOCRIT 36.0 33.0 - 51.0 % 07/08/2023 8:26 PM CDT [facility] MCV 82 80 - 100 fL 07/08/2023 8:26 PM CDT [facility] MCH 28.4 26.0 - 34.0 pg 07/08/2023 8:26 PM CDT [facility] MCHC 34.4 32.0 - 36.0 g/dL 07/08/2023 8:26 PM CDT [facility] RDW 13.4 11.5 - 15.5 % 07/08/2023 8:26 PM CDT [facility] PLATELET COUNT 264 140 - 440 thou/cu mm 07/08/2023 8:26 PM CDT [facility] MPV 9.4 6.5 - 11.0 fL 07/08/2023 8:26 PM CDT [facility] NRBC 0.0 % 07/08/2023 8:26 PM CDT [facility] ABS NRBC 0.0 thou /cu mm 07/08/2023 8:26 PM CDT [facility] % NEUT 68.5 % 07/08/2023 8:26 PM CDT [facility] % LYMPH 20.4 % 07/08/2023 8:26 PM CDT [facility] % MONO 7.5 % 07/08/2023 8:26 PM CDT [facility] % EOS 3.0 % 07/08/2023 8:26 PM CDT [facility] % BASO 0.3 % 07/08/2023 8:26 PM CDT [facility] % IMMATURE GRAN (METAS,MYELOS,MT OS) 0.3 % 07/08/2023 8:26 PM CDT [facility] ABSOLUTE NEUTROPHILS 4.5 1.7 - 7.0 thou/cu mm 07/08/2023 8:26 PM CDT [facility] ABSOLUTE LYMPHOCYTES 1.3 0.9 - 2.9 thou/cu mm 07/08/2023 8:26 PM CDT [facility] ABSOLUTE MONOCYTES 0.5 <0.9 thou/cu mm 07/08/2023 8:26 PM CDT [facility] ABSOLUTE EOSINOPHILS 0.2 <0.5 thou/cu mm 07/08/2023 8:26 PM CDT [facility] ABSOLUTE BASOPHILS 0.0 <0.3 thou/cu mm 07/08/2023 8:26 PM CDT [facility] ABSOLUTE IMMATURE GRANULOCYTES(MET ,MYELOS,PROS) 0.0 <0.3 thou/cu mm 07/08/2023 8:26 PM CDT [facility] Blood BLOOD SPECIMEN / Unknown Venipuncture / Unknown 07/08/2023 8:20 PM CDT 07/08/2023 8:20 PM CDT Poonam Melendez MD HEMATOLOGY Performing Organization Address [facility]/State/ZIP Co de Phone Number [facility] [address] [place] [address], * PATH TISSUE EXAM (05/08/2023 3:24 PM BARREL PAINTER) Case Report Pathology Report ?Case: [id number] ? Authorizing Provider: ??Radha Schneider, ?? Collected: ? 05/08/2023 1524 ? PA ? Ordering Location: ? [facility] ? Received: ?05/09/2023 1049 ? [facility] ? Pathologist: ? Hyacinth Conti MD ? Specimens: ?? A) - Back, A) right mid scapula ? B) - Back, B) left upper lateral back ? 05/10/2023 2:08 PM BARREL PAINTER [facility] Final Diagnosis A) SKIN, RIGHT MID SCAPULA, BIOPSY: 1. Compound nevus with mild atypia ?? a. Margin status: POSITIVE ??(deep and peripheral) 2. Negative for malignancy B) SKIN, LEFT UPPER LATERAL BACK, BIOPSY: 1. Compound nevus with mild atypia ?? a. Margin status: POSITIVE ??(deep) 2. Negative for malignancy 05/10/2023 2:08 PM BARREL PAINTER [facility] Clinical Information Rule out atypia. 05/10/2023 2:08 PM BARREL PAINTER [facility] Gross Description A) Received in formalin, labeled with the patient's name and right mid scapula, is a 0.8 x 0.6 x 0.1 cm skin biopsy. ??There is a 0.3 x 0.3 cm flat brown-black lesion. ??It is inked blue and trisected. ??Additionally received is a 0.7 x 0.3 x 0.2 cm aggregate of 2 fragments of thomas tissue or possible skin with no grossly apparent resection margins. ??The specimen is entirely submitted in 2 cassettes. B) Received in formalin, labeled with the patient's name and left upper lateral back, is a 0.8 x 0.6 x 0.1 cm skin biopsy. There is a 0.5 x 0.4 cm flat brown-black ??lesion. The specimen is inked red, trisected and entirely submitted in one cassette. EKW 05/09/2023 05/10/2023 2:08 PM BARREL PAINTER [facility] [employer] [facility]AT[facility] Microscopic Description The final diagnosis is based on microscopic examination of appropriate sections of all specimens. A) Sections demonstrate a compound melanocytic proliferation characterized by both architectural disorder and mild cytologic atypia. The presence of ??blue ink is confirmed on tissue sections. B) Sections demonstrate a compound melanocytic proliferation characterized by both architectural disorder and mild cytologic atypia. The presence of ??red ink is confirmed on tissue sections. 05/10/2023 2:08 PM BARREL PAINTER [facility] [employer] [facility] Additional Information Interpreted at [facility] - [address] [facility] [address], [place] [address] 05/10/2023 2:08 PM BARREL PAINTER [facility] Other (Back) Non-Blood / Unknown 05/08/2023 3:24 PM BARREL PAINTER 05/09/2023 10:49 AM BARREL PAINTER Specimen (specimen) (Back) Non-Blood / Unknown 05/08/2023 3:24 PM BARREL PAINTER 05/09/2023 10:49 AM BARREL PAINTER Radha BARRIOS PATHOLOGY/CYTO LOG[facility] [address] [place] [address], * [employer] PAYROLL CONSULTANT THIN PREP PAP SCREEN IMAGED (08/28/2022 3:00 PM CDT) Case Report Gynecologic Cytology Report ? Case: [id number] ? Authorizing Provider: ??Susy Julio MD Collected: ? 08/28/2022 1500 ? Ordering Location: ? [facility]elina ? Received: ?08/28/2022 1525 ? [facility] ? First Screen: ?Ghislaine Corley ? Specimen: ?SAP PAYROLL CONSULTANT ThinPrep Vial Screening, Cervical ? 09/27/2022 2:06 PM CDT [facility] INTERPRETATION/ RESULT NEGATIVE FOR INTRAEPITHELIAL LESION OR MALIGNANCY (NIL) (none) 09/27/2022 2:06 PM CDT [facility] IMEN ADEQUACY Satisfactory for evaluation Endocervical cells cannot be evaluated due to severe atrophy 09/27/2022 2:06 PM CDT [facility] HPV REQUEST HPV if ASCUS 09/27/2022 2:06 PM CDT [facility] [employer] [facility] Date of LMP Postmenopausal 07/26/202 3 2:06 PM CDT [facility] Last Pap Date 05/12/19 09/27/2022 2:06 PM CDT [facility] Last Pap Result NIL 2:06 PM CDT [facility] Abnormal Pap or [place] Bx in last 5 years No 09/27/2022 2:06 PM CDT [facility] Menstrual Status Postmenopausal 09/27/2022 2:06 PM CDT [facility] [place] Bx Done Today No 09/27/2022 2:06 PM CDT [facility] Additional Information None given 09/27/2022 2:06 PM CDT [facility] Comment: Cytology is screened at [facility] - [address], [place] [address] and [facility] - [address] [place] [address] and [facility] - [address] [place] [address] Interpreted at [facility] - [address] [place] [address] Automated Review Successful 09/27/2022 2:06 PM CDT [facility] Comment:Specimen processed s uccessfully by automated pole shaver device, ThinPrep Imaging System, [employer] Note The pap test is a screening technique, not a diagnostic procedure. It is used primarily to screen for squamous cancers and precursor lesions. Published studies have shown that it is subject to both false negative and false positive results. The pap test should not be used as the sole means to diagnose or exclude pre-malignant and malignant lesions. 09/27/2022 2:06 PM CDT [facility] Other (Cervical) Non-Blood / Unknown 08/28/2022 3:00 PM CDT 08/28/2022 3:25 PM CDT Susy Julio MD PATHOLOGY/CYTOL OGY [facility] [address] [place] [address], [place] from Last 3 Months or Most Recently Relevant to Health Maintenance Advance Directives * Full Code (Latest Code Status on File) Date Activated Date Inactivated Comments 11/29/2021 8:19 AM 11/30/2021 2:54 PM Question Answer Comments Code Status Discussion: Discussed Care Teams Insurance Account Executive Relationship Specialty Start Date End Date Jarod Vega MD [address] [place] [address] PCP - General 12/03/06 Milena Cutler, RN [address] [place] [address] Nurse Navigator - Oncology Oncology 05/09/22
--- NOTE | 2023-07-16 10:00 | CT_ITS ---
Patient: MARY JACKSON Facility:?[facility] RIS Patient ID:?[id number] Site Patient ID:?[id number]. Site :?[id number] Study:?CT-ST Neck 150CC ISOVUE 370-07/16/2023 11:12:16 AM Ordering Physician:?DR. SINCLAIR Final Report: INDICATION: Left-sided neck pain job pain. History of breast cancer. History of left-sided neck lymph nodes. TECHNIQUE: CT images through the neck are obtained during infusion of 150 cc Isovue-370. Multiplanar reconstructions. COMPARISON: CT PET scan dated 02/23/2023. FINDINGS: Small metallic marker is placed over the left antral lateral neck to correspond to the area of the patient`s concern. Deep to the marker there is no pathologic lymph node enlargement or worrisome pathology by CT criteria. No enlarged left side neck nodes is are seen. On the right side there is an enlarged lymph node at level 2 christine station anterior to the sternocleidomastoid muscle between the parotid tail and submandibular gland. It measures approximately 2.5 x 1.5 cm in maximal diameters and demonstrates a partially enhancing wall. It would be amenable to ultrasound- guided fine needle aspiration biopsy for tissue diagnosis. There are other normal size scattered lymph nodes in the spinal accessory and jugular chains bilaterally but they are not pathologically enlarged. Mild mucosal thickening of the left maxillary antrum. Nasal fossa and nasopharynx oropharynx tongue base epiglottis and larynx are unremarkable. The right thyroid lobe slightly larger than the left but homogeneous in density. No bony destructive lesions are seen. IMPRESSION: 1. Enlarged (worrisome appearing) lymph node in the right upper neck level 2. Not seen on prior PET-CT. 2. Metastatic adenopathy considered. Amenable to ultrasound-guided fine-needle aspiration biopsy for tissue diagnosis. 3. No worrisome pathology or enlarged node seen in the left neck to correspond to the marker placed over the area of patient`s concern. Please note that all CT scans at this facility use dose modulation, iterative reconstruction, and/or weight-based dosing when appropriate to reduce radiation dose to as low as reasonably achievable. Dictated by Nba Acevedo MD @ 07/17/2023 8:27:00 AM Signed by:?Nba Acevedo MD @07/17/2023 8:27:00 AM (Electronic Signature)
--- NOTE | 2023-07-16 10:30 | CT_ITS ---
Patient: MARY JACKSON Facility:?[facility] RIS Patient ID:?[id number] Site Patient ID:?[id number]. Site :?1985 Study:?CT-Chest 150CC ISOVUE 370-07/16/2023 11:13:24 AM Ordering Physician:?DR. SINCLAIR Final Report: INDICATION: Left jaw and neck pain. History of breast cancer. TECHNIQUE: CT chest without contrast. Area of pain marked on the topogram with a BB. This is located on the left side of the neck COMPARISON: 02/23/2023 PET-CT FINDINGS: Lungs and pleura: No suspicious nodules or infiltrates. No pleural effusions, pleural thickening, or pneumothorax. Heart and vasculature: Heart size is normal. Thoracic aorta and pulmonary artery are normal in caliber.Aberrant right subclavian artery, anatomic variant. Lymph nodes/mediastinum: No mediastinal, hilar, or axillary adenopathy. Thyroid gland is normal. Chest wall: Bilateral mastectomies. Upper abdomen: Subtle low-density lesion the anterior right hepatic lobe on image 62 of series 3, indeterminate. Similar 2.3 cm lesion inferior right hepatic lobe image 95. Cyst in the caudate lobe. Innumerable cysts in the imaged kidneys. Bones: Unremarkable for age. IMPRESSION: 1. Indeterminate low-density lesions in the liver. Recommend liver protocol CT or MRI. 2. No cause for neck pain identified. 3. Polycystic kidneys. Please note that all CT scans at this facility use dose modulation, iterative reconstruction, and/or weight-based dosing when appropriate to reduce radiation dose to as low as reasonably achievable. Dictated by Jj Valencia MD @ 07/17/2023 9:12:33 AM Signed by:?Jj Valencia MD @07/17/2023 9:12:33 AM (Electronic Signature)
== END 2023-07-16 09:41 | disposition home or self-care (01) ==
LOC: CT 09:41
PROVIDERS: PCP Family Medicine; Visit Provider Internal Medicine Hematology & Oncology
DX: M54.2 Cervicalgia (principal); R68.84 Jaw pain; K76.9 Liver disease, unspecified; Q61.3 Polycystic kidney, unspecified; C50.912 Malignant neoplasm of unspecified site of left female breast
CPT/HCPCS: 70491; 71260; Q9967

== ENCOUNTER 2023-07-20 10:45 | Outpatient (CLI) | payer BC, SELFPAY ==
--- OUTSIDE RECORDS SUMMARY | 2023-07-20 10:47 | XMS_ITS | Clinical Summary ---
Author Name Unknown Organization [facility] Address [place], [place] [address] Care Team Providers Care Fire Extinguisher Technician Name Role Phone Jarod Vega MD Primary Care Provider Milena Cutler RN Unavailable [phone] Allergies Active Allergy Reactions Criticality Noted Date Comments Adhesive Rash Unknown 06/03/2021 Covid-19 Vaccine, Mrna, [id number], Lnp-S ([employer]) Other - Describe In Comment Field 03/23/2023 High fever, severe arthralgias, sick for about 7 days. House Dust *Unknown Unknown 05/01/2007 Latex Rash Unknown 01/11/2018 Lisinopril Cough 01/18/2022 Mold Extracts *Unknown Unknown 05/01/2007 Nickel Rash,Itching Unknown 06/03/2021 Pollen Extracts *Unknown Unknown 05/01/2007 Medications Medication Sig Dispensed Refills Start Date End Date Status nl-bu-acuw-FA-Ca carb-vit K 18 mg iron-400 mcg-500 mg tab Take 1 Tablet by mouth once daily. 0 12/27/2017 Active Post Mastectomy BraIndications:Aimee gnant neoplasm of left female breast, unspecified estrogen receptor status, unspecified site of breast (HC),Absence of breast, acquired, bilateral For personal use. Dispense as many as allowable by insurance. 3 Packet 2 12/07/2021 Active Breast ProsthesisIndicatio ns:Malignant neoplasm of left female breast, unspecified estrogen receptor status, unspecified site of breast (HC),Absence of breast, acquired, bilateral For personal use. Right Breast Prosthesis 1 Each 12/07/2021 Active Breast ProsthesisIndicatio ns:Malignant neoplasm of left female breast, unspecified estrogen [...] Take by mouth. 0 06/07/2022 Active Breast ProsthesisIndicatio ns:Infiltrating ductal carcinoma of female breast, unspecified laterality (HC),S/P bilateral mastectomy Right Breast Prosthesis. For personal use. 1 Each 11/07/2022 Active Breast ProsthesisIndicatio ns:Infiltrating ductal carcinoma of female breast, unspecified laterality (HC),S/P bilateral mastectomy Left Breast Prosthesis. For personal use. 1 Each 11/07/2022 Active Post Mastectomy BraIndications:Infi ltrating ductal carcinoma of female breast, unspecified laterality (HC),S/P bilateral mastectomy For personal use. 3 Packet 3 11/07/2022 Active omeprazole (PRILOSEC) 20 mg Delayed-Release capsule Take 1 capsule by mouth daily 90 Capsule 1 12/04/2022 Active anastrozole (ARIMIDEX) 1 mg tablet Take 1 tablet by mouth every day 90 Tablet 3 03/21/2023 Active loratadine (CLARITIN) 10 mg tabletIndications:A llergy, sequela Take 1 Tablet (10 mg) by mouth once daily. 90 Tablet 3 03/23/2023 Active FLUoxetine (PROZAC) 40 mg capsuleIndications: Depression, unspecified depression type Take 1 capsule by mouth every morning. 90 Capsule 3 03/23/2023 Active losartan-hydrochlor othiazide, 50-12.5 mg, (HYZAAR) 50-12.5 mg tabletIndications:B enign essential HTN Take 1 tablet by mouth once daily. 90 Tablet 3 03/23/2023 Active montelukast (SINGULAIR) 10 mg tabletIndications:A llergy, sequela,Mild intermittent asthma without complication Take 1 tablet (10 mg) by mouth at bedtime. 90 Tablet 3 03/23/2023 Active magnesium oxide (MAG-OX 400) 400 mg tablet Take 1 tablet by mouth 2 times daily 120 Tablet 5 03/26/2023 Active hyoscyamine (LEVSIN) 0.125 mg tablet Active albuterol HFA (PRO-AIR; VENTOLIN; PROVENTIL) 90 mcg/actuation inhalerIndications: Mild intermittent asthma without complication Inhale 1-2 puffs by mouth every 4 hours if needed. 8.5 g 1 06/20/2023 Active amoxicillin (AMOXIL) 500 mg capsule Take 1 Capsule (500 mg) by mouth three times daily until gone 30 Capsule 07/12/2023 Active Active Problems Problem Noted Date Diagnosed Date Infiltrating ductal carcinoma of female breast 0 08/28/2022 History of mastectomy 08/28/2022 Borderline systolic HTN 11/29/2021 Malignant neoplasm of lower- outer quadrant of left female breast 06/24/2021 Cancer Staging:Clinical stage from 08/09/2021:Stage IIIB(cT2, cN3a, cM0, G2, ER+, MA+, HER2-) - Signed by Stef Thibodeaux MD on 08/09/2021 Pathologic:No Stage Recommended(ypT0, pN0(sn), cM0, G2, ER+, MA+, HER2-) - Signed by Brinda Partida CNS on 12/11/2021 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 See letter dated 06/08/2021 from cancer genetic counselor for details. Sheela Ruiz, , [facility] 06/09/2021 9:48 AM Irritable bowel [...] Encounters Date Type Department Care Team Description 07/18/2023 Orders Only [facility] [address] [place] [address] Holli Lim MD 1 scan: (1-Ord) PET 07/08/2023 7:10 PM CDT Office Visit [facility] [place] [id number] [place] [address] [phone] Poonam Melendez MD Neck Pain/problem 07/08/2023 Travel 07/04/2023 Patient Outreach [facility] Care Management - Advanced Care Team [address] [place] [address] Trev Butler Complex Care Management ([facility] [employer] Engagement Outreach - Payer Referral) 06/19/2023 Refill [facility] [address] [place] [address] Jarod Vega MD Refill Request (Albuterol Hfa) 05/21/2023 1:15 PM CDT Office Visit [facility] [address] [place] [address] Uzma Fall, CHIEF BANK EXAMINER Cough (Says she has a cough, fever and this morning thinks she might have a sinus infection, because she was dizzy- did x2 COVID-19 test were negative- cough and fever have been going on for x2 weeks) 05/21/2023 Travel 05/11/2023 Telephone [facility] [address] [place] [address] Radha Schneider PA Results 05/08/2023 3:00 PM MOLD DRESSER Office Visit [facility] [address] [place] [address] Radha Schneider PA Derm Problem 05/08/2023 Travel from Last 3 Months Immunizations Name Administration Dates Next Due COVID-19 vaccine (Oxtox NTBeMyGuest 30mcg/0.3mL) PF, MDV 03/30/2020,03/09/2020 Hepatitis B (Peds) [...] file Travel History Travel Start Travel End [place] 06/08/2023 07/08/2023 Obstetrics History Para Term AB [...] 177.8 cm (5' 10) 03/23/2023 11:52 AM MOLD DRESSER Body Mass Index 45.34 03/23/2023 11:52 AM MOLD DRESSER Plan of Treatment Upcoming Encounters Date Type Department Care Team (Late st Contact Info) Description 07/24/2023 8:00 AM CDT Appointment [facility] [address] [facility] [place] [address] Health Maintenance Due Date Last Done Comments HIV for age 15-65 2000 Hepatitis C screening for ag e 18-79 12/09/2003 COVID-19 vaccine series (3 - [...] history exists Pneumococcal series for age 6-64 Completed 03/23/19, 01/14/2002 Tdap Completed 03/23/2023, 08/03, 04/19/2009 Procedures Procedure [...] PATH TISSUE EXAM Routine 05/08/2023 3:24 PM MOLD DRESSER Neoplasm of uncertain behavior PSYCHIATRY INSTRUCTOR THIN PREP PAP SCREEN IMAGED Routine 08/28/2022 3:00 PM CDT Cervical cancer screening from Last 3 Months or Most Recently Relevant to Health Maintenance Results * STREP A PCR (07/08/2023 8:37 PM CDT) GROUP A STREP Negative 07/09/2023 6:38 PM CDT [facility] Throat SPECIMEN FROM THROAT / Unknown Non-Blood / Unknown 07/08/2023 8:37 PM CDT 07/08/2023 8:44 PM CDT Poonam Melendez MD MICROBIOLOGY Performing Organization Address City/[facility]/ZIP Co de Phone Number [facility] [address] [place] [address], [place] * THROAT RAPID STREP A WITH REFLEX (07/08/2023 8:37 PM CDT) STREP A ANTIGEN Negative 07/08/2023 8:[address] [facility] Comment:PCR to follow. Throat SPECIMEN FROM THROAT / Unknown Non-Blood / Unknown 07/08/2023 8:37 PM CDT 07/08/2023 8:37 PM CDT Poonam Melendez MD MICROBIOLOGY Performing Organization Address [facility]/ZIP Co de Phone Number [facility] [address] [place] [address], [place] * CBC WITH AUTO DIFFERENTIAL (07/08/2023 8:20 PM CDT) WHITE BLOOD COUNT 6.6 4.5 - 11.0 thou/cu mm 07/08/2023 8:[address] [facility] RED BLOOD COUNT 4.37 4.00 - 5.20 mil/cu mm 07/08/2023 8:[address] [facility] HEMOGLOBIN 12.4 12.0 - 16.0 g/dL 07/08/2023 8:[address] [facility] HEMATOCRIT 36.0 33.0 - 51.0 % 07/08/2023 8:[address] [facility] MCV 82 80 - 100 fL 07/08/2023 8:[address] [facility] MCH 28.4 26.0 - 34.0 pg 07/08/2023 8:[address] [facility] MCHC 34.4 32.0 - 36.0 g/dL 07/08/2023 8:[address] [facility] RDW 13.4 11.5 - 15.5 % 07/08/2023 8:[address] [facility] PLATELET COUNT 264 140 - 440 thou/cu mm 07/08/2023 8:[address] [facility] MPV 9.4 6.5 - 11.0 fL 07/08/2023 8:[address] [facility] NRBC 0.0 % 07/08/2023 8:[address] [facility] ABS NRBC 0.0 thou /cu mm 07/08/2023 8:[address] [facility] % NEUT 68.5 % 07/08/2023 8:[address] [facility] % LYMPH 20.4 % 07/08/2023 8:[address] [facility] % MONO 7.5 % 07/08/2023 8:[address] [facility] % EOS 3.0 % 07/08/2023 8:[address] [facility] % BASO 0.3 % 07/08/2023 8:[address] [facility] % IMMATURE GRAN (METAS,MYELOS,MA OS) 0.3 % 07/08/2023 8:[address] [facility] ABSOLUTE NEUTROPHILS 4.5 1.7 - 7.0 thou/cu mm 07/08/2023 8:[address] [facility] ABSOLUTE LYMPHOCYTES 1.3 0.9 - 2.9 thou/cu mm 07/08/2023 8:[address] [facility] ABSOLUTE MONOCYTES 0.5 <0.9 thou/cu mm 07/08/2023 8:[address] [facility] ABSOLUTE EOSINOPHILS 0.2 <0.5 thou/cu mm 07/08/2023 8:[address] [facility] ABSOLUTE BASOPHILS 0.0 <0.3 thou/cu mm 07/08/2023 8:[address] [facility] ABSOLUTE IMMATURE GRANULOCYTES(MET ,MYELOS,PROS) 0.0 <0.3 thou/cu mm 07/08/2023 8:[address] [facility] Blood BLOOD SPECIMEN / Unknown Venipuncture / Unknown 07/08/2023 8:20 PM CDT 07/08/2023 8:20 PM CDT Poonam Melendez MD HEMATOLOGY [facility] [address] [place] [address], [place] * PATH TISSUE EXAM (05/08/2023 3:24 PM MOLD DRESSER) Case Report Pathology Report ?Case: [id number] ? Authorizing Provider: ??Radha Schneider, ?? Collected: ? 05/08/2023 1524 ? PA ? Ordering Location: ? [facility] [place] ? Received: ?05/09/2023 1049 ? [facility] ? Pathologist: ? Hyacinth Conti MD ? Specimens: ?? A) - Back, A) right mid scapula ? B) - Back, B) left upper lateral back ? 05/10/2023 2:08 PM [facility]-C ENTRAL LABORATORY Final Diagnosis A) SKIN, RIGHT MID SCAPULA, BIOPSY: 1. Compound nevus with mild atypia ?? a. Margin status: POSITIVE ??(deep and peripheral) 2. Negative for malignancy B) SKIN, LEFT UPPER LATERAL BACK, BIOPSY: 1. Compound nevus with mild atypia ?? a. Margin status: POSITIVE ??(deep) 2. Negative for malignancy 05/10/2023 2:08 PM [facility]-C ENTRAL LABORATORY Clinical Information Rule out atypia. 05/10/2023 2:08 PM [facility] ENTRAL LABORATORY Gross Description A) Received [...] one cassette. EKW 05/09/2023 05/10/2023 2:08 PM MOLD DRESSER [facility] Microscopic Description The final diagnosis is [...] confirmed on tissue sections. 05/10/2023 2:08 PM MOLD DRESSER [facility] [employer] LABORATORY-C [facility] Additional Information Interpreted at [facility] - [address] [facility] [address] [address] 05/10/2023 2:08 PM MOLD DRESSER [facility] Other (Back) Non-Blood / Unknown 05/08/2023 3:24 PM MOLD DRESSER 05/09/2023 10:49 AM MOLD DRESSER Specimen (specimen) (Back) Non-Blood / Unknown 05/08/2023 3:24 PM MOLD DRESSER 05/09/2023 10:49 AM MOLD DRESSER Radha BARRIOS PATHOLOGY/CYTO LOGY [facility] [address] [place] [address], * PSYCHIATRY INSTRUCTOR THIN PREP PAP SCREEN IMAGED (08/28/2022 3:00 PM CDT) Case Report Gynecologic Cytology Report ? Case: [id number] ? Authorizing Provider: ??Susy Julio MD Collected: ? 08/28/2022 1500 ? Ordering Location: ? [facility] [place] ? Received: ?08/28/2022 1525 ? [facility] ? First Screen: ?Ghislaine Corley ? Specimen: ?PSYCHIATRY INSTRUCTOR ThinPrep Vial Screening, Cervical ? 09/27/2022 2:06 PM CDT [facility] INTERPRETATION/ RESULT NEGATIVE FOR INTRAEPITHELIAL LESION OR MALIGNANCY (NIL) (none) 09/27/2022 2:06 PM CDT [facility] IMEN ADEQUACY Satisfactory for evaluation Endocervical cells cannot be evaluated due to severe atrophy 09/27/2022 2:06 PM CDT [facility] EN[facility] LAB[facility] HPV REQUEST HPV if ASCUS 09/27/2022 2:06 PM CDT [facility] ENTRAL LAB[facility]ATORY Date of LMP Postmenopausal 2:06 PM CDT [facility] ENTRAL LAB[facility]ATORY Last Pap Date 05/12/19 09/27/2022 2:06 PM CDT [facility]- ENTRAL LABORATORY Last Pap Result NIL 2:06 PM CDT [facility] ENTRAL LABORATORY Abnormal Pap or Bohemia Bx in last 5 years No 09/27/2022 2:06 PM CDT [facility] Menstrual Status Postmenopausal 09/27/2022 2:06 PM CDT [facility] ENTRAL LABORATORY Bohemia Bx Done Today No 09/27/2022 2:06 PM CDT [facility] Additional Information None given 09/27/2022 2:06 PM CDT [facility] ENTRAL LABORATORY Comment: Cytology is screened at [facility] Laboratory - [address], [place] [address] and [facility] - [address], [place] [address] and [facility] - [address] [facility] [place] [address] Interpreted at [facility] - [address] [place] [address] Automated Review Successful 09/27/2022 2:06 PM CDT [facility] LAB[facility] Comment:Specimen processed s uccessfully by automated collection technician device, ThinPrep Imaging System, [employer] Note The pap test is a [...] and malignant lesions. 09/27/2022 2:06 PM CDT [facility] Other (Cervical) Non-Blood / Unknown 08/28/2022 3:00 PM CDT 08/28/2022 3:25 PM CDT Susy Julio MD PATHOLOGY/CYTOL OGY [facility] [address] [place] [address], [place] from Last 3 Months or Most Recently Relevant to Health Maintenance Advance Directives * Full Code (Latest Code Status on File) Date Activated Date Inactivated Comments 11/29/2021 8:19 AM 11/30/2021 2:54 PM Question Answer Comments Code Status Discussion: Discussed Care Teams Fire Extinguisher Technician Relationship Specialty Start Date End Date Jarod Vega MD [address] [place] [address] PCP - General 12/03/06 Milena Cutler, RN [address] [place] [address] Nurse Navigator - Oncology Oncology 05/09/22
--- NOTE | 2023-07-20 11:15 | US_ITS ---
Patient: MARY JACKSON Facility:?[facility] R[facility] Patient ID:?[id number] Site Patient ID:?[id number]. Site :?1985 Study:?US-ST Neck Procedure DSM TO READ-07/20/2023 11:58:00 AM Ordering Physician:LIZBETH SINCLAIR Final Report: ULTRASOUND-GUIDED RIGHT CERVICAL LYMPH NODE BIOPSY CLINICAL HISTORY: History of breast cancer, enlarged right cervical lymph node. COMPARISON STUDIES: CT 07/16/2023 TECHNIQUE: Real-time ultrasound with image documentation was used for targeting the right neck lymph node lesion. Core biopsy specimens were obtained using an automated gun with a 18-gauge biopsy needle. CONSENT and TIME OUT: The procedure, risks, and alternatives were explained to the patient and a consent was signed. Rayne Protocol was followed including pre-procedure verification that relevant information/documentation was available, reviewed and properly matched to the patient; consent accurate and complete; and equipment and supplies available. Time Out was conducted just prior to starting procedure to verify the four required elements: patient identity, correct side/site marked (if applicable), procedure, relevant images/results properly labeled and displayed (if applicable). PROCEDURE: The patient was positioned supine on the ultrasound table. The right side of the neck was prepped with ChloraPrep. 8 cc of 1 percent lidocaine used for local anesthesia. Core samples were obtained. The specimens were placed in 10% formalin and sent to the pathology department. Pressure was held on the biopsy site until all bleeding subsided. LATERALITY: Right neck LESION: Enlarged hypoechoic lymph node measuring 1.4 cm within the right side of the neck. SUSPICION FOR MALIGNANCY: Low-medium. NUMBER OF SAMPLES: 5 IMPRESSION: Ultrasound-guided right neck cervical lymph node biopsy. Dictated by Tyler Mendez MD @ 07/20/2023 1:12:48 PM Signed by:?Tyler Mendez MD @07/20/2023 1:12:48 PM (Electronic Signature)
== END 2023-07-20 10:46 | disposition home or self-care (01) ==
LOC: US 10:45
PROVIDERS: PCP Family Medicine; Visit Provider Internal Medicine Hematology & Oncology
DX: C50.912 Malignant neoplasm of unspecified site of left female breast (principal); R59.9 Enlarged lymph nodes, unspecified
CPT/HCPCS: 38505; 76942; 88304; 88341; 88342; A4649

== ENCOUNTER 2023-07-31 09:30 | Outpatient (RCR) | payer BC, SELFPAY ==
--- NOTE | 2023-04-20 13:33 | URNOTE ---
Received request for prior authorization for [facility] [id number], Per [employer], prior authorization is not required. Ref #[id number], date range 04/27/23 to 04/27/24.
[2023-04-27] MEDS: SODIUM CHLORIDE 0.9 % (FLUSH) 10 ML SYRINGE IVF (13:04)
[2023-04-27 13:09] VITALS: BP 136/83; PULSE 80; RESP 17; TEMP 35.8; O2SAT 99
[2023-04-27] MEDS: 0.9 % SODIUM CHLORIDE 1000 ml 1,000 ML IV (13:40)
[2023-04-27 13:53] LABS: Calcium* 9.6 mg/dL (8.4-10.6); Creatinine* 0.6 mg/dL (0.5-1.5); Estimated Glomerular Filt Rate 118 ml/min
[2023-04-27] MEDS: 0.9 % SODIUM CHLORIDE 250 ml IV (14:50)
[2023-04-27] MEDS: ZOLEDRONIC ACID 3 MG in 0.9 % SODIUM CHLORIDE 100 ml 100 ML 420 MG IVPB (15:01)
--- NOTE | 2023-07-09 14:10 | ONC.NURNOTE ---
Patient called to report a 4 day history of left neck pain. She reports it is under her ear and near her jaw. She reports the pain was so bad yesterday that she went to urgent care. They did not appreciate any enlarged lymph nodes. They ruled out strep and did a CBC. She was discharged with supportive care (Tylenol and Ibuprofen). She denies fevers and reports that she is eating and drinking normally. The pain is now making it difficult to sleep. Concerns reviewed with Dr. Lim and patient informed of plan to do CT. If her CT is negative and the pain continues, we will refer her to her dentist for a work up to rule out osteonecrosis of the jaw secondary to bisphosphonates. Patient verbalizes understanding.
--- NOTE | 2023-07-19 15:40 | ONC.NURNOTE ---
Plan of care update: 1. Patient will have an US guided lymph node biopsy 07/[address] [facility]. Mendez did not feel that this would interfere with her PET/CT scan next week. 2. Patient will have a PET/CT 07/23 at [place] 3. Tentative follow up planned for 07/[address] Lim to review results. Patient wanted to update us that she was started on an antibiotic by her dentist on 07/11 for a possible tooth infection. Since starting the antibiotic, her pain has almost completely gone away. They also referred her to an supervisor line department and she has an appointment with them on the .
--- NOTE | 2023-07-26 14:52 | ONC.NURNOTE ---
Orders for PET/CT faxed to [facility] in [place] per patient request. They will call patient to schedule. This is to be done and resulted prior to her 10/23 follow up.
--- NOTE | 2023-09-20 09:58 | PC.NURSE ---
[facility] Om[facility] last week. RN called pt and asked her to reach out to PCP to get a new script from that provider going forward. RN called today to follow up and [place] stated that she would be seeing him today. Invited pt to call if she is unable to get a refill today. Support offered.
== END 2023-10-24 23:59 | disposition home or self-care (01) ==
LOC: CCIC 09:30
PROVIDERS: PCP Family Medicine; Referring Provider Family Medicine; Visit Provider Internal Medicine Hematology & Oncology
DX: C50.912 Malignant neoplasm of unspecified site of left female breast (principal)
CPT/HCPCS: 36415; 82310; 82565; 96360; 96365; 96376; 99214; 99215; G0463; J3489; J7030; J7050

== ENCOUNTER 2024-03-20 09:12 | Outpatient (CLI) | payer BC, SELFPAY ==
--- NOTE | 2024-03-20 09:15 | CRLHL7_ITS ---
For Patients: As a result of the Century Cures Act, medical imaging exams and procedure reports are released immediately into your electronic medical record. You may view this report before your referring provider. If you have questions, please contact your health care provider. Indication: NEW RIGHT NECK LUMP Technique: Grayscale and color Doppler ultrasound of the right neck soft tissues performed. Comparison: CT head 07/24/2023, ultrasound biopsy 07/20/2023 Findings: Normal right cervical lymph nodes are present at level 5 measuring 8 x 4 x 5 millimeters and 7 x 2 x 6 millimeters. Cortex measures less than 2 millimeters. Normal central fatty renee and normal internal vascularity. Impression: Normal lymph nodes. No suspicious findings. Dictated by Tyler Mendez MD @ 03/20/2024 10:18:15 AM (Electronically Signed)
== END 2024-03-20 09:13 | disposition home or self-care (01) ==
LOC: US 09:13
PROVIDERS: PCP Family Medicine; Visit Provider Physician Assistant
DX: R22.1 Localized swelling, mass and lump, neck (principal); C50.912 Malignant neoplasm of unspecified site of left female breast
CPT/HCPCS: 76536

== ENCOUNTER 2024-03-20 10:30 | Outpatient (RCR) | payer BC, SELFPAY ==
[2023-10-25 09:47] LABS: Basophils Absolute Auto 0.02 K/uL (0.00-0.30); Basophils Percent Auto 0.4 % (0.0-3.0); Eosinophils Absolute Auto 0.22 K/uL (0.00-0.50); Eosinophils Percent Auto 3.9 % (0.0-7.0); Hematocrit 39.6 % (33.0-51.0); Hemoglobin* 13.1 gm/dL (12.0-16.0); Lymphocytes Percent Auto 14.3 % (20-44); Mean Corpuscular HGB Conc 33 gm/dL (32-36); Mean Corpuscular Hemoglobin 28 pg (26-34); Mean Corpuscular Volume 85 fL (80-100); Monocytes Percent Auto 7.7 % (0.0-11.0); Neutrophils Percent Auto 73.7 % (42.0-72.0); Platelet Count* 244 K/uL (140-440); RDW Coefficient of Variation % 13.5 % (11.5-15.5); Red Blood Count 4.67 m/uL (4.00-5.20); White Blood Count* 5.68 K/uL (4.50-11.00)
[2023-10-25 09:49] LABS: Slide Review Reflex No
[2023-10-25] MEDS: 0.9 % SODIUM CHLORIDE 1000 ml 1,000 ML IV (09:53)
[2023-10-25 09:59] LABS: Albumin* 4.3 g/dL (3.3-5.0); Chloride* 104 mmol/L (96-114)
[2023-10-25 10:00] LABS: Potassium* 3.8 mmol/L (3.6-5.1); Sodium* 139 mmol/L (135-149)
[2023-10-25 10:02] LABS: Alanine Aminotransferase* 14 U/L (4-35); Alkaline Phosphatase* 73 U/L (40-150); Anion Gap 7 mEq/L (7-15); Aspartate Amino Transferase* 19 U/L (12-35); Bilirubin Total* 0.4 mg/dL (0.1-1.5); Blood Urea Nitrogen* 21 mg/dL (5-24); Carbon Dioxide* 28 mmol/L (20-32); Creatinine* 0.6 mg/dL (0.5-1.5); Estimated Glomerular Filt Rate 118 ml/min; Glucose* 85 mg/dL (60-115); Total Protein* 6.8 g/dL (6.0-8.3)
[2023-10-25 10:03] LABS: Calcium* 9.2 mg/dL (8.4-10.6)
[2023-10-25 10:38] LABS: Ferritin* 20.1 ng/mL (6.24-137.0)
[2023-10-25 10:53] LABS: Vitamin B12* 436 pg/mL (243-894)
[2023-10-25] MEDS: ZOLEDRONIC ACID 3 MG in 0.9 % SODIUM CHLORIDE 100 ml 100 ML 415 MG IVPB (11:20)
[2023-10-25 12:02] LABS: Iron* 113 ug/dL (37-170)
[2023-10-25 12:12] LABS: Percent Iron Saturation 33 % (20-50); Total Iron Binding Capacity 343 ug/dL (265-497)
--- NOTE | 2023-10-30 09:53 | ONC.NURNOTE ---
Left message for pt to call back and schedule a blood draw in one month. Maddie Bartlett PA-C would like to recheck a CBC and iron studies.
[2023-11-20 15:40] LABS: Hematocrit 37.8 % (33.0-51.0); Hemoglobin* 12.4 gm/dL (12.0-16.0); Mean Corpuscular HGB Conc 33 gm/dL (32-36); Mean Corpuscular Hemoglobin 28 pg (26-34); Mean Corpuscular Volume 86 fL (80-100); Platelet Count* 255 K/uL (140-440); Red Blood Count 4.42 m/uL (4.00-5.20); White Blood Count* 7.29 K/uL (4.50-11.00)
[2023-11-20 15:46] LABS: Slide Review Reflex No
[2023-11-20 16:52] LABS: Ferritin* 18.2 ng/mL (6.24-137.0)
--- NOTE | 2023-12-17 10:02 | ONC.NURNOTE ---
Pt called notifying she is beginning a new job and new insurance 01/09/24. Currently scheduled for 3 mo f/u w Dr. Lim 01/23/24 and is requesting to move sooner for existing insurance. Rescheduled with labs prior to 01/07/24.
[2024-01-07 12:42] LABS: Basophils Percent Auto 0.1 % (0.0-3.0); Hematocrit 40.9 % (33.0-51.0); Hemoglobin* 13.4 gm/dL (12.0-16.0); Immature Granulocytes Pct Auto 0.8 %; Lymphocytes Percent Auto 5.3 % (20-44); Mean Corpuscular HGB Conc 33 gm/dL (32-36); Mean Corpuscular Hemoglobin 28 pg (26-34); Mean Corpuscular Volume 85 fL (80-100); Neutrophils Percent Auto 92.8 % (42.0-72.0); Platelet Count* 310 K/uL (140-440); RDW Coefficient of Variation % 13.7 % (11.5-15.5); White Blood Count* 11.41 K/uL (4.50-11.00)
[2024-01-07 12:57] LABS: Albumin* 4.6 g/dL (3.3-5.0); Chloride* 101 mmol/L (96-114); Slide Review Reflex No
[2024-01-07 12:58] LABS: Potassium* 4.2 mmol/L (3.6-5.1); Sodium* 139 mmol/L (135-149)
[2024-01-07 12:59] LABS: Iron* 102 ug/dL (37-170)
[2024-01-07 13:00] LABS: Alanine Aminotransferase* 15 U/L (4-35); Alkaline Phosphatase* 84 U/L (40-150); Anion Gap 10 mEq/L (7-15); Aspartate Amino Transferase* 18 U/L (12-35); Blood Urea Nitrogen* 24 mg/dL (5-24); Carbon Dioxide* 28 mmol/L (20-32); Creatinine* 0.7 mg/dL (0.5-1.5); Est. Creatinine Clearance* 121.79; Estimated Glomerular Filt Rate 113 ml/min
[2024-01-07 13:01] LABS: Calcium* 9.9 mg/dL (8.4-10.6); Glucose* 174 mg/dL (60-115); Magnesium* 2.1 mg/dL (1.5-2.6)
[2024-01-07 13:09] LABS: Percent Iron Saturation 28 % (20-50); Total Iron Binding Capacity 361 ug/dL (265-497)
[2024-01-07 13:35] LABS: Ferritin* 21.9 ng/mL (6.24-137.0)
[2024-01-07 13:39] LABS: Bilirubin Total* < 0.1 mg/dL (0.1-1.5)
[2024-01-07 13:51] LABS: Vitamin B12* 394 pg/mL (243-894)
--- NOTE | 2024-03-10 13:20 | ONC.NURNOTE ---
Patient called to report a 2 week history of a lump in her right neck. She describes it as supraclavicular. She denies any pain or skin changes. Patient thought it was a muscle knot but even after a deep massage it did not go away. Patient scheduled to see Maddie Bartlett on 03/13 for further assessment.
[2024-03-13 14:27] LABS: Basophils Absolute Auto 0.02 K/uL (0.00-0.30); Basophils Percent Auto 0.3 % (0.0-3.0); Eosinophils Absolute Auto 0.19 K/uL (0.00-0.50); Eosinophils Percent Auto 2.9 % (0.0-7.0); Hematocrit 39.9 % (33.0-51.0); Hemoglobin* 13.2 gm/dL (12.0-16.0); Immature Granulocytes Abs Auto 0.01 K/uL (0.00-0.30); Immature Granulocytes Pct Auto 0.2 %; Lymphocytes Percent Auto 15.5 % (20-44); Mean Corpuscular HGB Conc 33 gm/dL (32-36); Mean Corpuscular Hemoglobin 28 pg (26-34); Mean Corpuscular Volume 84 fL (80-100); Monocytes Percent Auto 8.4 % (0.0-11.0); Neutrophils Percent Auto 72.7 % (42.0-72.0); Platelet Count* 255 K/uL (140-440); RDW Coefficient of Variation % 13.2 % (11.5-15.5); Red Blood Count 4.75 m/uL (4.00-5.20); White Blood Count* 6.53 K/uL (4.50-11.00)
[2024-03-13 14:37] LABS: Slide Review Reflex No
[2024-03-13 14:41] LABS: Albumin* 4.1 g/dL (3.3-5.0); Chloride* 107 mmol/L (96-114)
[2024-03-13 14:42] LABS: Potassium* 3.6 mmol/L (3.6-5.1); Sodium* 138 mmol/L (135-149)
[2024-03-13 14:44] LABS: Alanine Aminotransferase* 17 U/L (4-35); Alkaline Phosphatase* 60 U/L (40-150); Anion Gap 6 mEq/L (7-15); Aspartate Amino Transferase* 18 U/L (12-35); Bilirubin Total* 0.3 mg/dL (0.1-1.5); Blood Urea Nitrogen* 21 mg/dL (5-24); Carbon Dioxide* 25 mmol/L (20-32); Creatinine* 0.5 mg/dL (0.5-1.5); Est. Creatinine Clearance* 164.97; Estimated Glomerular Filt Rate 123 ml/min; Glucose* 129 mg/dL (60-115); Total Protein* 6.5 g/dL (6.0-8.3)
== END 2024-04-22 23:59 | disposition home or self-care (01) ==
LOC: CCIC 10:30
PROVIDERS: Physician Assistant; PCP Family Medicine; Referring Provider Family Medicine; Visit Provider Internal Medicine Hematology & Oncology
DX: C50.912 Malignant neoplasm of unspecified site of left female breast (principal); Z17.0 Estrogen receptor positive status [ER+]; Z15.01 Genetic susceptibility to malignant neoplasm of breast; R22.1 Localized swelling, mass and lump, neck; Z15.09 Genetic susceptibility to other malignant neoplasm; D72.829 Elevated white blood cell count, unspecified; D50.9 Iron deficiency anemia, unspecified; E53.8 Deficiency of other specified B group vitamins; Z90.13 Acquired absence of bilateral breasts and nipples; Z79.811 Long term (current) use of aromatase inhibitors
CPT/HCPCS: 36415; 80053; 82607; 82728; 83540; 83550; 83735; 85025; 85027; 96360; 96376; 99214; 99215; G0463; J3489; J7030

== ENCOUNTER 2024-03-26 08:00 | Outpatient (CLI) | payer BC, SELFPAY ==
--- NOTE | 2024-03-26 08:00 | CRLHL7_ITS ---
For Patients: As a result of the Century Cures Act, medical imaging exams and procedure reports are released immediately into your electronic medical record. You may view this report before your referring provider. If you have questions, please contact your health care provider. XR DXA Bone Mineral Density (BMD) Reason for exam: Monitor bone density, on anastrozole. Current height (in): 70. Weight (lb): 310. Menopause age: 35. Ethnicity: White. 1. Have you had a previous hip or vertebral fracture? No. 2. Have you had any fractures during your adult life which did not result from significant trauma (e.g., auto accident)? No. 3. Did either of your parents have a hip fracture? No. 4. Do you smoke? No. 5. Have you ever taken Glucocorticoids? No. 6. Do you have rheumatoid arthritis? No. 7. Do you have secondary osteoporosis? No. 8. Do you drink 3 or more alcoholic drinks per day? No. 9. Are you being treated for osteoporosis? No. 10. Have you ever taken any of the following medications: Actonel, Evista, Fosamax, Miacalcin, Reclast, Boniva, Forteo, HRT (i.e., estrogen/hormone therapy), Protelos, Prolia, Vitamin D, Calcium, other ??? please specify. ANSWER: Yes, vitamin D, calcium. 11. Do you have any of the following medical conditions: Anorexia or bulimia, asthma or emphysema, end stage renal disease, hyperparathyroidism, any seizure disorders, cancer, inflammatory bowel diseases, hysterectomy, other ??? please specify. ANSWER: Yes, asthma or emphysema, breast cancer, IBS, oophorectomy. 12. What was your maximum height (inches)? 70. 13. Do you perform weight bearing exercise regularly? Yes. 14. Do you regularly consume dairy products? Yes. 15. Do you drink caffeinated beverages? Yes. 16. At what age did your period start? 13. 17. Are you premenopausal? Yes. 18. How many full-term pregnancies have you had? 1. 19. Have you ever missed your period for more than 6 months in a row (not including or menopause)? No. TECHNIQUE: Bone mineral density study was performed using the [employer]. FINDINGS: The results of the study expressed as bone mineral density (BMD) are as follows: Lumbar spine L1 to L4: BMD: 0.973 g/cm2. T-score: -0.7. Z-score: -0.5 Neck Left: BMD: 0.818 g/cm2. T-score: -0.3. Z-score: 0.0 Right: BMD: 0.913 g/cm2. T-score: 0.6. Z-score: 0.8 Total Left: BMD: 1.071 g/cm2. T-score: 1.1. Z-score: 1.2 Right: BMD: 1.106 g/cm2. T-score: 1.3. Z-score: 1.5 IMPRESSION: Normal bone density. *Comparison exams done prior to 08/2019 were performed on different unit, [facility]. COMPARISON: Compared with scan of 03/02/2022, the bone mineral density has increased by 0.3 percent at the spine and increased by 2.3 percent at the hip. THANIA BLACKMON M.D. Diagnostic/Nuclear Medicine Radiologist [email or web address] JMN:[email or web address]/Dictated by: Thania Blackmon MD @ 03/26/2024 9:10:00 AM (Electronically Signed)
== END 2024-03-26 08:01 | disposition home or self-care (01) ==
LOC: RAD 08:01
PROVIDERS: PCP Family Medicine; Visit Provider Physician Assistant
DX: Z79.811 Long term (current) use of aromatase inhibitors (principal)
CPT/HCPCS: 77080

== ENCOUNTER 2024-05-01 08:42 | Outpatient (CLI) | payer BC, SELFPAY ==
--- NOTE | 2024-05-01 09:00 | CRLHL7_ITS ---
For Patients: As a result of the Century Cures Act, medical imaging exams and procedure reports are released immediately into your electronic medical record. You may view this report before your referring provider. If you have questions, please contact your health care provider. INDICATION: New onset neck tightness with palpable posterior lymph nodes. TECHNIQUE: Axial intravenously infused CT cuts were performed from above the skullbase to the superior mediastinum with infusion of 150 mL of Isovue-370. COMPARISON: None. FINDINGS: There are no enlarged lymph nodes between the skullbase and the superior mediastinum. The parotid glands are somewhat bulky. The submandibular and sublingual glands appear normal. The thyroid is unremarkable. No mucosal abnormality is identified of the paranasal sinuses, nasal cavity, pharynx or oral cavity. The visualized brain and orbits appear normal. There are no nodules or masses at the lung apices. There are no lytic or sclerotic skeletal lesions. IMPRESSION: Negative for cervical lymphadenopathy. Bilaterally bulky parotid glands with no parotid masses. Please note that all CT scans at this facility use dose modulation, iterative reconstruction, and/or weight-based dosing when appropriate to reduce radiation dose to as low as reasonably achievable. Dictated by Evangelist Dale MD @ 05/04/2024 10:09:06 PM (Electronically Signed)
== END 2024-05-01 08:43 | disposition home or self-care (01) ==
LOC: CT 08:42
PROVIDERS: PCP Family Medicine; Visit Provider Clinical Nurse Specialist
DX: M54.2 Cervicalgia (principal); C50.912 Malignant neoplasm of unspecified site of left female breast; Z15.01 Genetic susceptibility to malignant neoplasm of breast
CPT/HCPCS: 70491; Q9967

== ENCOUNTER 2024-10-16 09:00 | Outpatient (RCR) | payer BC, SELFPAY ==
[2024-04-23 09:31] LABS: Calcium* 9.4 mg/dL (8.4-10.6); Creatinine* 0.7 mg/dL (0.5-1.5); Estimated Glomerular Filt Rate 113 ml/min
[2024-04-23] MEDS: ZOLEDRONIC ACID 3 MG in 0.9 % SODIUM CHLORIDE 100 ml 100 ML 404 MG IVPB (10:37)
[2024-07-17 09:38] LABS: Hematocrit 39.7 % (33.0-51.0); Hemoglobin* 13.2 gm/dL (12.0-16.0); Immature Granulocytes Abs Auto 0.00 K/uL (0.00-0.30); Immature Granulocytes Pct Auto 0.0 %; Lymphocytes Absolute Auto 1.17 K/uL (0.90-2.90); Mean Corpuscular HGB Conc 33 gm/dL (32-36); Mean Corpuscular Hemoglobin 28 pg (26-34); Mean Corpuscular Volume 85 fL (80-100); RDW Coefficient of Variation % 13.7 % (11.5-15.5); Red Blood Count 4.68 m/uL (4.00-5.20); White Blood Count* 5.50 K/uL (4.50-11.00)
[2024-07-17 09:43] LABS: Slide Review Reflex No
[2024-07-17 09:44] LABS: Albumin* 4.5 g/dL (3.3-5.0); Chloride* 102 mmol/L (96-114); Sodium* 140 mmol/L (135-149)
[2024-07-17 09:45] LABS: Potassium* 4.1 mmol/L (3.6-5.1)
[2024-07-17 09:47] LABS: Alanine Aminotransferase* 20 U/L (4-35); Alkaline Phosphatase* 64 U/L (40-150); Anion Gap 8 mEq/L (7-15); Aspartate Amino Transferase* 27 U/L (12-35); Bilirubin Total* 0.5 mg/dL (0.1-1.5); Blood Urea Nitrogen* 21 mg/dL (5-24); Calcium* 9.5 mg/dL (8.4-10.6); Carbon Dioxide* 30 mmol/L (20-32); Creatinine* 0.7 mg/dL (0.5-1.5); Est. Creatinine Clearance* 117.84; Estimated Glomerular Filt Rate 113 ml/min; Glucose* 109 mg/dL (60-115); Total Protein* 7.1 g/dL (6.0-8.3)
[2024-07-17 10:37] LABS: Vitamin B12* 943 pg/mL (243-894)
[2024-10-16 09:14] VITALS: BP 117/70; PULSE 70; RESP 16; TEMP 36.6; O2SAT 96
[2024-10-16 09:23] LABS: Calcium* 9.6 mg/dL (8.4-10.6); Creatinine* 0.7 mg/dL (0.5-1.5); Est. Creatinine Clearance* 117.84; Estimated Glomerular Filt Rate 113 ml/min
[2024-10-16] MEDS: ZOLEDRONIC ACID 3 MG in 0.9 % SODIUM CHLORIDE 100 ml 100 ML 400 MG IVPB (10:40)
== END 2024-10-20 23:59 | disposition home or self-care (01) ==
LOC: CCIC 09:00
PROVIDERS: Clinical Nurse Specialist; Internal Medicine Hematology & Oncology; PCP Family Medicine; Referring Provider Family Medicine; Visit Provider Physician Assistant
DX: C50.912 Malignant neoplasm of unspecified site of left female breast (principal); Z17.0 Estrogen receptor positive status [ER+]; R79.0 Abnormal level of blood mineral; Z79.811 Long term (current) use of aromatase inhibitors; Z79.83 Long term (current) use of bisphosphonates; Z90.13 Acquired absence of bilateral breasts and nipples; R89.0 Abnormal level of enzymes in specimens from other organs, systems and tissues
CPT/HCPCS: 36415; 80053; 82310; 82565; 82607; 82728; 85025; 96361; 96365; 99214; 99215; G0463; J3489; J7030